=== PATIENT | female | born 1945 | race Caucasian/White ===

== ENCOUNTER 2017-09-13 15:00 | Outpatient (CLI) | payer MEDICARE, BC ==
--- NOTE | 2017-09-13 18:19 | MRI ---
MR OF THE RIGHT SHOULDER WITHOUT CONTRAST 09/13/17 INDICATION: Right shoulder pain. COMPARISON: Right shoulder radiograph dated 09/22/16. FINDINGS: Motion artifact slightly limits image detail. There is a full thickness tear involving the supraspina tus measuring 1.8 cm in greatest AP dimension and 1.2 cm in greatest mediolateral dimension. Portions of the posterior fibers and conjoined tendon are intact. There is articular surface extension into t he anterior and mid aspect of the infraspinatus at the footprint involving approximately 50% of the t endon thickness. The subscapularis is intact. The biceps tendon is completely obstructed and distally retracted. There is degenerative signal involving the supraglenoid labrum. There is mild AC joint osteoarthrosis. No muscular atrophy is evident. There is a type II acromion. IMPRESSION: 1. Complete supraspinatus tear with partial thickness, articular surface extension into the ante rior and mid infraspinatus. The partial thickness articular surface tear of the infraspinatus involve s 50% of the tendon thickness. 2. Complete disruption of the biceps tendon with distal retraction. 3. Type I degenerative SLAP tear of the superior glenoid labrum. 4. Mild AC joint osteoarthrosis. POS: [facility]
== END 2017-09-13 15:01 | disposition home or self-care (01) ==
LOC: SCSMRI 15:00
PROVIDERS: ATTEND Orthopaedic Surgery
DX: M25.511 Pain in right shoulder (principal); M19.011 Primary osteoarthritis, right shoulder; S43.431A Superior glenoid labrum lesion of right shoulder, initial encounter; S46.811A Strain of other muscles, fascia and tendons at shoulder and upper arm level, right arm, initial encounter

== ENCOUNTER 2017-10-25 13:39 | Outpatient (CLI) | payer MEDICARE, BC | END 2017-10-25 13:40 | disposition home or self-care (01) | LOC: LABBT 13:39 | PROVIDERS: ATTEND Orthopaedic Surgery | DX: Z01.810 Encounter for preprocedural cardiovascular examination (principal); M75.101 Unspecified rotator cuff tear or rupture of right shoulder, not specified as traumatic | CPT/HCPCS: 93005; 93010 ==

== ENCOUNTER → 2017-10-27 | Day surgery (SDC) | payer MEDICARE, BC ==
[2017-10-25 13:44] VITALS: BMI 23.0
[~2017-10-27] MED LIST: Bupivacaine/Epinephrine 0.25% 30 ML VIAL ONE; CEFAZOLIN/Water 2 GM/20 ML SYRINGE ONE; Fentanyl 100 MCG/2 ML VIAL IV PRN; Fentanyl 100 MCG/2 ML VIAL ONE; Midazolam HCl 2 mg/2 ml Vial ONE; Ondansetron HCl/PF 4 MG/2 ML Vial IVP PRN; Promethazine HCl 25 MG/ML VIAL IM PRN; Promethazine HCl 25 MG/ML VIAL SLOW IVP PRN; Ropivacaine HCl/PF 1,100 MG in Sodium Chloride 0.9% 440 ML NERVE BLCK SCH; Zolpidem Tartrate 5 MG TAB PO PRN
--- NOTE | 2017-10-27 08:13 | HP ---
CHIEF COMPLAINT: Right shoulder pain. HISTORY OF PRESENT ILLNESS: Ms. Leos is a 72-year-old female who presents complaining of right sh oulder pain for about 2 years. She only had partial relief with anti-inflammatories , injection . The patient's pain is from 6-8/10, where lifting is painful. She has failed conservative measures . 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 PAST SURGICAL HISTORY: Tubal ligation, L4-S1 laminectomy, meningioma resection in 1988, neuroma on f oot, cataract surgery, left eye. MEDICATIONS: Aspirin, citalopram, ibuprofen, Zonegran. ALLERGIES: LIPITOR. SOCIAL HISTORY: Nonsmoker. Does drink. The patient is retired [employer]. with grandchildren. PHYSICAL EXAMINATION: VITAL SIGNS: Afebrile, stable. GENERAL: Alert and oriented female in no acute distress. EXTREMITIES: The patient has a nadja deformity, pain with elevation, infraspinatus 4/5, supraspinat us 4/5, strength 5/5, tenderness in subacromial space, positive Ontiveros, neurovascularly intact, 2+ r adial pulse. IMAGING: MRI of the shoulder showed a proximal biceps rupture with supraspinatus leading edge infras pinatus tear with retraction articular margin without significant atrophy, type 2 acromion. IMPRESSION: 1. A rupture of long head of biceps. 2. Complete rotator cuff tear. 3. Impingement. ASSESSMENT AND PLAN: I discussed with the patient and the family that we would perform a rotator cuf f repair with possible decompression. I discussed that I would take the available rotator cuff and r epair at the margin if I had to medialize the insertion that I would. Discussed that I would only be able to repair as much of the tissue allows. I discussed the risks and benefits of repair to includ e pain, scar, bleeding, infection, damage to vital structures, nerve, arteries, tendons, loss of life or limb. The patient understood the risks and benefits and elected to proceed.
--- NOTE | 2017-10-27 10:18 | OP ---
DATE OF PROCEDURE: 10/27/2017 PREOPERATIVE DIAGNOSES: 1. Full thickness rotator cuff tear, supraspinatus leading edge infraspinatus. 2. Biceps rupture with biceps stump. POSTOPERATIVE DIAGNOSES: 1. Full thickness rotator cuff tear, supraspinatus leading edge infraspinatus. 2. Biceps rupture with biceps stump. PROCEDURE PERFORMED: 1. Arthroscopic right rotator cuff repair, double row transosseous equivalent. 2. Limited debridement, biceps stump subacromial space. STAFF: Blair Randolph M.D. OYSTER CULTIVATOR: None. ANESTHESIA: The patient received general endotracheal intubation with interscalene block. ESTIMATED BLOOD LOSS: 30 mL. TOURNIQUET TIME: None. IMPLANTS: Arthrex 5.5 corkscrew x2, 5-5 SwiveLock Arthrex x2. COMPLICATIONS: None. HISTORY OF PRESENT ILLNESS: Ms. Leos presents with 2 years of progressing right shoulder pain. T he patient had MRI evidence of full thickness tear. She failed conservative measures. I discussed w ith patient the risks and benefits of right arthroscopic rotator cuff repair to include pain, scar, b leeding, infection, damage to vital structures, decreased range of motion or strength, failure of pro cedure, continued pain despite surgical interventions. Failure of tendon to heal, continue biceps de formity, loss of life or limb. The patient understood the risks and benefits and elected to proceed. PROCEDURE IN DETAIL: Time out was performed designating the patient's right upper extremity as the o perative site based on site, consents and markings. After completion of timeout, the patient's right upper extremity was prepped and draped in sterile fashion. A posterior, anterior working portal karolyn yeison, visualize intraarticularly. There was a large pendulous biceps stump which was debrided back. There was no large articular defects noted on the glenoid or noted on the humeral head. I debrided b ack the bone down to bleeding bone. I was within the joint, looked at the subscapularis and in the i nferior pouch, otherwise intact. After completion of this, I moved subacromially, I removed some of the bursa subacromially and decompress the soft tissue from the acromion, but did not take down any l arge bone for spikes. I placed a lateral working portal and then through my previous portal placed 2 cannulas, placed 1 just off the anterolateral edge of the stab incision for placing my anchors. Aft er I had created my footprint for my repair, I placed 2 anchors just off the articular margin, passed a 4 suture 8 strands of 4-0 sutures, sewed 4 horizontal mattress sutures, then used those for transo sseous equivalent with a cork SwiveLocks laterally, passed them into place, screws them down and cut the sutures. Following had a good overall bony apposition, the rotator cuff had good overall repair, I was pleased with the outcome. We then washed, closed with 2-0 Nylon. The patient will follow up with me in 10-14 days for suture removal. Elbow, wrist, and hand motion u ntil that time. She is being sent home with pain medications.
== END ==
LOC: SDC 06:06
PROVIDERS: ATTEND Orthopaedic Surgery
PROC: 0LM14ZZ Reattachment of Right Shoulder Tendon, Percutaneous Endoscopic Approach (ICD-10-PCS; principal; 2017-10-27)
PROC: 0LU14JZ Supplement Right Shoulder Tendon with Synthetic Substitute, Percutaneous Endoscopic Approach (ICD-10-PCS; 2017-10-27)
PROC: 0RNJ4ZZ Release Right Shoulder Joint, Percutaneous Endoscopic Approach (ICD-10-PCS; 2017-10-27)
DX: M75.121 Complete rotator cuff tear or rupture of right shoulder, not specified as traumatic (principal); S46.111A Strain of muscle, fascia and tendon of long head of biceps, right arm, initial encounter; M75.41 Impingement syndrome of right shoulder; F41.9 Anxiety disorder, unspecified; F32.9 Major depressive disorder, single episode, unspecified; M19.90 Unspecified osteoarthritis, unspecified site; M35.00 Sjogren syndrome, unspecified; K57.90 Diverticulosis of intestine, part unspecified, without perforation or abscess without bleeding; N18.3 Chronic kidney disease, stage 3 (moderate); Z88.8 Allergy status to other drugs, medicaments and biological substances; Z79.82 Long term (current) use of aspirin; Z79.899 Other long term (current) drug therapy
CPT/HCPCS: 29826; 29827; 97139; C1713 ×2; G8984; G8985; G8986; J2250; J3010; J7050

== ENCOUNTER 2017-11-04 10:29 | Inpatient (IN) | payer MEDICARE, BC ==
[~2017-11-04 10:29] MED LIST changes: -Bupivacaine/Epinephrine 0.25% 30 ML VIAL ONE; -CEFAZOLIN/Water 2 GM/20 ML SYRINGE ONE; -Fentanyl 100 MCG/2 ML VIAL IV PRN; -Fentanyl 100 MCG/2 ML VIAL ONE; +ISOVUE-370 76%-LOCM 1 ML ONE; -Midazolam HCl 2 mg/2 ml Vial ONE; -Ondansetron HCl/PF 4 MG/2 ML Vial IVP PRN; -Promethazine HCl 25 MG/ML VIAL IM PRN; -Promethazine HCl 25 MG/ML VIAL SLOW IVP PRN; -Ropivacaine HCl/PF 1,100 MG in Sodium Chloride 0.9% 440 ML NERVE BLCK SCH; -Zolpidem Tartrate 5 MG TAB PO PRN
[2017-11-04 11:12] LABS: #Eosinphils 0.2 thou/uL (0.0-0.7); #Lymphocytes 1.1 thou/uL (1.20-3.40); #Monocytes 0.7 thou/uL (0.11-0.59); #Neutrophils 4.7 thou/uL (1.40-6.50); %Basophils 0.6 % (0.0-1.0); %Eosinophils 3.2 % (0.0-10.0); %Lymphocytes 16.3 % (21.0-51.0); %Monocytes 10.1 % (0.0-10.0); %Neutrophils 69.8 % (42.0-75.0); Hemoglobin 11.1 g/dL (12.0-16.0); Mean Corpuscular HGB CONC 32.8 g/dL (32.0-36.0); Mean Corpuscular Hemoglobin 33.2 pg (27.0-31.0); Mean Platelet Volume 7.5 fL (7.4-10.4); Platelet Count 248 thou/uL (130-400); RBC Distribution Width 12.8 % (11.5-14.5); Red Blood Cell (RBC) Count 3.34 mill/uL (4.20-5.40); White Blood Cell (WBC) Count 6.8 thou/uL (4.8-10.8)
[2017-11-04 11:32] LABS: ALT (SGPT) 17 U/L (8-55); AST (SGOT) 19 U/L (5-34); Albumin 3.3 g/dL (3.4-4.8); Alkaline Phosphatase 55 U/L (40-150); Anion Gap 11 mmol/L (10-20); BUN (Urea Nitrogen) 9 mg/dL (9.8-20.1); Bilirubin, Total 0.4 mg/dL (0.2-1.2); Calc. Creatinine Clearance 0 mL/min (70-130); Calcium 8.8 mg/dL (7.8-10.44); Carbon Dioxide 24 mmol/L (23-31); Chloride 110 mmol/L (98-107); Estimated GFR-MDRD 76; Globulin 2.5 g/dL (2.4-3.5); Glucose 97 mg/dL (83-110); Lipase 5 U/L (8-78); Potassium 3.7 mmol/L (3.5-5.1); Protein, Total 5.8 g/dL (6.0-8.3); Sodium 141 mmol/L (136-145)
[2017-11-04 12:03] LABS: Bilirubin Negative (Negative); Blood, Urine Negative (Negative); Clarity CLEAR (Clear); Glucose, Urine (Dipstick) Negative (Negative); Leukocyte Negative (Negative); Nitrite Negative (Negative); Protein, Urine (Dipstick) Negative (Neg-Trace); Specific Gravity, Urine 1.009 (1.002-1.036); Urobilinogen 0.2 mg/dL (0.2-1.0)
[2017-11-04] MEDS ORDERED: Ondansetron ODT 4 MG TAB ONE (13:25)
--- NOTE | 2017-11-04 14:15 | CT ---
CT ABDOMEN WITH CONTRAST CT PELVIS WITH CONTRAST: DATE: 11/04/17 TIME: 1256 hours HISTORY: 72-year-old female with generalized abdominal pain and recent diagnosis of sepsis. Now with generaliz ed abdominal pain, diarrhea, and weakness. COMPARISON: None. TECHNIQUE: IV injection of iodinated contrast media: Administered. Oral contrast media: Not administered. FINDINGS: There is diffuse mural thickening and edema, and increased enhancement of the mucosa, of the left col on, beginning at the mid transverse colon, involving the splenic flexure, entire descending colon, an d most or all of the sigmoid colon, and questionably the rectum. The ascending colon is probably mild ly involved, as is the right transverse colon. There is diffuse mild edema throughout the mesentery. Tiny amount of free fluid in the cul-de-sac. Urinary bladder is distended. There is a tiny bubble of gas in the nondependent lumen of the urinary bladder, which may be due to recent catheterization. Uri nary bladder pierce are thin and normal. No small bowel dilation. No abdominal aortic aneurysm. Scatte red calcified atherosclerotic plaque in the abdominal aorta, including origin of SMA and right renal artery (their degree of stenosis is difficult to assess because this was not a dedicated CTA). No gurwinder or pathology of the liver, bilateral kidneys, pancreas, adrenals, or spleen. There is atelectasis at the right anterolateral lung base. Small bilateral pleural effusions. No pneumoperitoneum. Appendix i s difficult to differentiate from adjacent collapsed small bowel loops in the right lower quadrant. IMPRESSION: 1. Diffuse colitis, most severe in the left hemicolon. Although ischemic colitis is always a possibi lity in patients of this age group, this is suspected to represent Clostridium Difficile (pseudomembr anous) colitis because of the history of recent antibiotic use for both diverticulitis and sepsis. 2. Small bilateral pleural effusions. JNR POS: [facility]
[2017-11-04 17:15] LABS: Troponin I Less than 0.010 ng/mL (< 0.028)
[2017-11-04] MEDS ORDERED: Zolpidem Tartrate 5 MG TAB PO PRN (17:46)
[2017-11-04] MEDS ORDERED: Acetaminophen 325 MG TAB PO PRN (17:46)
[2017-11-04] MEDS ORDERED: hydrALAZINE 20 MG/ML VIAL SLOW IVP PRN (17:46)
[2017-11-04] MEDS ORDERED: Diabetic Tussin 200 MG/10 ML UDCUP PO PRN (17:46)
[2017-11-04] MEDS ORDERED: Ondansetron HCl/PF 4 MG/2 ML Vial IVP PRN (17:46)
[2017-11-04] MEDS ORDERED: Artificial Tears 18 DROP/0.9 ML EA EYE PRN (17:46)
[2017-11-04] MEDS ORDERED: Milk Of Magnesia 30 ML UDCUP PO PRN (17:46)
[2017-11-04] MEDS ORDERED: Chloraseptic Spray 180 ml Bottle PO PRN (17:46)
[2017-11-04] MEDS ORDERED: Loratadine 10 MG TAB PO PRN (17:46)
[2017-11-04] MEDS ORDERED: Eucerin (Mineral Oil/Petrolatum,White) 30 gm Jar TOP PRN (17:46)
[2017-11-04] MEDS ORDERED: Ondansetron ODT 4 MG TAB PO PRN (17:46)
[2017-11-04] MEDS ORDERED: Sodium Chloride 0.65% Nasal 44 ML BOT EA NARE PRN (17:46)
[2017-11-04] MEDS ORDERED: Senokot 8.6 MG TAB PO PRN (17:46)
[2017-11-04] MEDS ORDERED: Mag-Al 1200 mg/1200 mg/30 ML UDCUP PO PRN (17:46)
--- NOTE | 2017-11-04 17:48 | HP ---
PRIMARY CARE PHYSICIAN: Cecilia Quinn MD REASON FOR ADMISSION: Acute colitis. HISTORY OF PRESENT ILLNESS: A 72-year-old female who reports that she has abdominal pain for a perio d of time. In our hospital, Patient had surgery by Dr. Agustín Pinto for right rotator cuff repair. Patient reports that even before that patient was having abdominal pain. She saw primary care phys amarilis at that time and she empirically started antibiotic therapy. Patient does not know the name of medication. The patient was told that she might have diverticulitis, but investigation was not done . The patient stopped taking those antibiotic therapy couple of days before her rotator cuff repair that was done on 10/27/2017. The patient was discharged from the hospital after that she was admitte d at [facility] on 10/31/2017. At that time, patient had CT of the abdomen and pelvis and the patient was told that she was constipated from [place]. She was having cellulitis nearby surgi karena site in the right arm and that is why she was given IV antibiotic therapy in hospital and upon di scharge and she was given Keflex. The patient reports that she was discharged yesterday afternoon ti ma. Patient's abdominal pain was getting worse and she started having diarrhea and that is why she m pauline appointment with primary care physician who advised her to go to the emergency room for evaluatio n. In the emergency room, CT of the abdomen and pelvis done which showed diffuse colitis. Patient d enies any fever or chills. She denies any nausea, vomiting, melena or hematochezia. She denies any urinary tract infection symptoms. She denies any headache, focal motor or sensory symptoms. REVIEW OF SYSTEMS: The following complete review of systems was negative, unless otherwise mentioned in the HPI or below: Constitutional: Weight loss or gain, ability to conduct usual activities. Sk in: Rash, itching. Eyes: Double vision, pain. ENT/Mouth: Nose bleeding, neck stiffness, pain, te nderness. Cardiovascular: Palpitations, dyspnea on exertion, orthopnea. Respiratory: Shortness of breath, wheezing, cough, hemoptysis, fever or night sweats. Gastrointestinal: Poor appetite, abdom inal pain, heartburn, nausea, vomiting, constipation, or diarrhea. Genitourinary: Urgency, frequenc y, dysuria, nocturia. Musculoskeletal: Pain, swelling. Neurologic/Psychiatric: Anxiety, depressio n. Allergy/Immunologic: Skin rash, bleeding tendency. Please see my HPI for pertinent positive and negative. All other review of system reviewed and negat edvin except as mentioned in the HPI. PAST MEDICAL HISTORY: Meningioma removed on signs of spinal cord. PAST PSYCHIATRIC HISTORY: Anxiety and depression. PAST SURGICAL HISTORY: Lumbar surgery, right rotator cuff surgery, tubal ligation, appendicectomy, g astric bypass. FAMILY HISTORY: No strong family history of premature coronary artery disease, stroke or cancer. SOCIAL HISTORY: The patient is , drinks alcohol socially. She denies any smoking. She denie s any other illicit drug abuse. ALLERGIES: LIPITOR. CURRENT HOME MEDICATIONS: Keflex 500 mg 3 times daily, aspirin 81 mg p.o. daily, calcium with vitami n D 1 tablet p.o. daily, Lexapro 10 mg p.o. daily, [place] 10 one tablet q.6 hourly p.r.n., multivitami n 1 tablet p.o. daily, vitamin D3 of 1000 units p.o. daily, zonisamide 300 mg twice daily. EMERGENCY ROOM COURSE: Patient is given Zofran, morphine sulfate 2 mg and IV fluid. PHYSICAL EXAMINATION: VITAL SIGNS: On arrival, blood pressure 128/63, pulse 73, respiratory rate 18, temperature 97.6, sat uration 94% on room air, weight 64.4 kilograms. GENERAL: Patient is currently alert, awake, no obvious acute distress. HEAD: Normocephalic, atraumatic. EYES: Pupils round, reactive to light. Extraocular muscle intact. ENT: Oropharynx within normal limits. Dry appearing mucous membranes. No oral lesion, no pharyngea l erythema, no exudate. NECK: Supple, no JVD, no thyromegaly, no carotid bruit. LUNGS: Clear to auscultation without any rhonchi or rales. CARDIAC: S1, S2 regular. No murmur, no gallop, no rub. ABDOMEN: Diffuse tenderness noted on lower abdomen, no peritoneal sign, no guarding, no rigidity, no rebound. BACK: Unremarkable, no CVA tenderness. EXTREMITIES: Upper extremity: Passive movements of all joints are normal. Lower extremities: No e didi. Good peripheral pulsation. SKIN: No skin rash. HEMATOLOGICAL: No lymphadenopathy. PSYCHIATRIC: Normal affect. SIGNIFICANT LABORATORY: 1. CBC: WBC 6.8, hemoglobin 11.1, MCV 101.0, platelet 248. BMP shows sodium 141, potassium 3.7, ch loride 110, carbon dioxide 24, anion gap 11, BUN 9, creatinine 0.75, glucose 97, calcium 8.8. 2. LFT: AST 19, ALT 17, alkaline phosphatase 55, albumin 3.3, lipase 5. Urinalysis normal. CT of the abdomen and pelvis showing diffuse colitis of left hemicolon, ischemic colitis versus Clostridium difficile colitis is suspected, small bilateral pleural effusion. ASSESSMENT AND PLAN/IMPRESSION: 1. Diffuse colitis, left hemicolon. Differential diagnosis is C. difficile colitis versus ischemic colitis. Patient was recently exposed to several rounds of antibiotic therapy that may increase her risk of C. difficile infection. We will check stool for infection workup. We will consult gastroent erologist for further evaluation. We will treat her with IV Flagyl and oral vancomycin. We will mon itor clinical response. We will check CRP. 2. Microcytic anemia. The patient will be given folic acid and vitamin B12 therapy. 3. Hypoalbuminemia related with mild protein calorie malnutrition. 4. Anxiety and depression. We will continue Lexapro 10 mg p.o. daily. 5. History of meningioma. Patient is taking zonisamide 300 mg p.o. b.i.d., which will continue whil e in hospital. 6. Deep venous thrombosis prophylaxis, Lovenox 40 mg subcu daily. 7. Gastrointestinal prophylaxis, Pepcid 20 mg p.o. b.i.d. 8. Code status: The patient is FULL CODE. Patient's is surrogate decision maker. Disposition plan based on clinical course. We are expecting patient's stay in hospital more than 2 m idnights. Plan of care discussed with the patient in detail.
[2017-11-04] MEDS ORDERED: Vancomycin HCl 25 MG/ML Oral PO SCH ×2 (18:00→21:00)
[2017-11-04 18:06] VITALS: BMI 22.1
[2017-11-04] MEDS: Sodium Chloride 0.9% 1,000 ML IV SCH (21:37)
[2017-11-04] MEDS: metroNIDAZOLE 500 MG in Premix Bag 1 BAG IVPB SCH (21:38)
[2017-11-04] MEDS: Zonisamide 100 MG CAP PO SCH (21:39)
[2017-11-04] MEDS: Famotidine 20 MG TAB PO SCH (21:39)
[2017-11-05] MEDS: metroNIDAZOLE 500 MG in Premix Bag 1 BAG IVPB SCH ×2 (04:37→11:51)
[2017-11-05] MEDS: Sodium Chloride 0.9% 1,000 ML IV SCH ×4 (04:37→22:13)
[2017-11-05 04:49] LABS: #Eosinphils 0.2 thou/uL (0.0-0.7); #Lymphocytes 1.6 thou/uL (1.20-3.40); #Monocytes 0.6 thou/uL (0.11-0.59); #Neutrophils 2.1 thou/uL (1.40-6.50); %Eosinophils 5.2 % (0.0-10.0); %Lymphocytes 35.2 % (21.0-51.0); %Monocytes 12.7 % (0.0-10.0); %Neutrophils 46.1 % (42.0-75.0); Hemoglobin 9.4 g/dL (12.0-16.0); Mean Corpuscular HGB CONC 33.7 g/dL (32.0-36.0); Mean Corpuscular Hemoglobin 33.7 pg (27.0-31.0); Mean Platelet Volume 7.1 fL (7.4-10.4); Platelet Count 223 thou/uL (130-400); Red Blood Cell (RBC) Count 2.79 mill/uL (4.20-5.40); White Blood Cell (WBC) Count 4.6 thou/uL (4.8-10.8)
[2017-11-05 05:03] LABS: Anion Gap 9 mmol/L (10-20); BUN (Urea Nitrogen) 6 mg/dL (9.8-20.1); Calc. Creatinine Clearance 71 mL/min (70-130); Calcium 7.9 mg/dL (7.8-10.44); Carbon Dioxide 24 mmol/L (23-31); Chloride 113 mmol/L (98-107); Estimated GFR-MDRD 81; Glucose 83 mg/dL (83-110); Potassium 3.5 mmol/L (3.5-5.1); Sodium 142 mmol/L (136-145)
[2017-11-05] MEDS: Zonisamide 100 MG CAP PO SCH ×2 (08:40→20:01)
[2017-11-05] MEDS: Saccharomyces boulardii 250 MG CAP PO SCH (08:40)
[2017-11-05] MEDS: Famotidine 20 MG TAB PO SCH ×2 (08:40→20:01)
[2017-11-05] MEDS: Enoxaparin Sodium 40 MG/0.4 ML SYRINGE SC SCH (08:40)
[2017-11-05] MEDS: Escitalopram Oxalate 10 mg Tablet PO SCH (08:40)
[2017-11-05] MEDS ORDERED: Prevnar 13-Val Conj/PF 0.5 ML SYRINGE IM ONE (09:00)
[2017-11-05] MEDS: HYDROcodone/Acetaminophen 5/325 mg Tablet PO PRN ×3 (09:58→22:10)
--- NOTE | 2017-11-05 14:22 | PDOC.PN ---
- Subjective Encounter Start Date: 11/05/17 Encounter Start Time: 14:20 Subjective: feels much better.1 small BM this morning.no diarrhea -: eating a little -: family at bedside.care updated - Objective Resuscitation Status: Resuscitation Status FULL:Full Resuscitation MAR Reviewed: Yes Vital Signs & Weight: Vital Signs (12 hours) Temp Pulse Resp BP BP Pulse Ox 11/05/17 12:11 97.6 F 75 16 120/72 92 L 11/05/17 08:28 97.9 F 71 16 125/61 95 11/05/17 08:00 97.9 F 71 16 96 11/05/17 04:00 97.6 F 68 16 104/63 92 L I&O: 11/04/17 11/05/17 11/06/17 06:59 06:59 06:59 Intake Total 1824 600 Balance 1824 600 Result Diagrams: 11/05/17 03:58 11/05/17 03:58 Additional Labs: Microbiology 11/04/17 16:46 Stool - Pending C. difficile GDH Antigen & Toxins - Final 11/04/17 16:46 Stool - Pending Clostridium difficile Toxin A&B PCR - Final 11/04/17 11:53 Urine clean catch Urine Culture - Preliminary NO GROWTH AT 24 HOURS Laboratory Tests 11/04/17 16:40 Troponin I Less than 0.010 labs reviewed Phys Exam - Physical Examination Constitutional: NAD HEENT: PERRLA, moist MMs, sclera anicteric, oral pharynx no lesions Neck: no nodes, no JVD, supple, full ROM Respiratory: no wheezing, no rales, no rhonchi, clear to auscultation bilateral Cardiovascular: RRR, no significant murmur, no rub Gastrointestinal: soft, non-tender, no distention, positive bowel sounds Musculoskeletal: no edema, pulses present Neurological: non-focal, normal sensation, moves all 4 limbs Psychiatric: normal affect, A&O x 3 Skin: no rash Dx/Plan (1) C. difficile colitis Status: Acute (2) HTN (hypertension) Code(s): I10 - ESSENTIAL (PRIMARY) HYPERTENSION Status: Chronic (3) HLD (hyperlipidemia) Code(s): E78.5 - HYPERLIPIDEMIA, UNSPECIFIED Status: Chronic - Plan continue antibiotics, PT/OT, out of bed/ambulate, DVT proph w/SCDs cont IV Flagyl.Po vancomycin -: reduave IVF. encourage PO intake -: home meds as below. -: GI recs requested. -: am labs * . Review of Systems - Review of Systems Constitutional: weakness. negative: fever, chills, sweats, malaise, other Respiratory: negative: Cough, Dry, Shortness of Breath, Hemoptysis, SOB with Excertion, Pleuritic Pain, Sputum, Wheezing Cardiovascular: negative: chest pain, palpitations, orthopnea, paroxysmal nocturnal dyspnea, edema, light headedness, other Gastrointestinal: negative: Nausea, Vomiting, Abdominal Pain, Diarrhea, Constipation, Melena, Hematochezia, Other Genitourinary: negative: Dysuria, Frequency, Incontinence, Hematuria, Retention , Other Musculoskeletal: negative: Neck Pain, Shoulder Pain, Arm Pain, Back Pain, Hand Pain, Leg Pain, Foot Pain, Other Skin: negative: Rash, Lesions, Klaus, Bruising, Other Neurological: negative: Weakness, Numbness, Incoordination, Change in Speech, Confusion, Seizures, Other - Medications/Allergies Allergies/Adverse Reactions: Allergies Allergy/AdvReac Type Severity Reaction Status Date / Time atorvastatin [From Lipitor] Allergy language Verified 10/25/17 13:47 disability Medications: Current Medications Acetaminophen (Tylenol) 650 mg PO Q4H PRN PRN Reason: Headache/Fever or Pain Hydrocodone Bitart/Acetaminophen ([place] 5/325) 1 tab PO Q4H PRN PRN Reason: Moderate Pain (4-6) Last Admin: 11/05/17 09:58 Dose: 1 tab Al Hydroxide/Mg Hydroxide (Maalox) 30 ml PO Q6H PRN PRN Reason: Heartburn or Indigestion Amlodipine Besylate (Norvasc) 10 mg PO DAILY [facility] Artificial Tears (Tears Naturale) 0 drop EA EYE PRN PRN PRN Reason: Dry Eyes Citalopram Hydrobromide (Celexa) 40 mg PO DAILY [facility] Enoxaparin Sodium (Lovenox) 40 mg SC 0900 [facility] Last Admin: 11/05/17 08:40 Dose: 40 mg Escitalopram Oxalate (Lexapro) 10 mg PO DAILY [facility] Last Admin: 11/05/17 08:40 Dose: 10 mg Famotidine (Pepcid) 20 mg PO BID [facility] Last Admin: 11/05/17 08:40 Dose: 20 mg Guaifenesin (Robitussin Sf) 200 mg PO Q4H PRN PRN Reason: Cough Hydralazine HCl (Apresoline) 10 mg SLOW IVP Q4H PRN PRN Reason: Systolic BP > 180 Metronidazole 500 mg/ Device 100 mls @ 100 mls/hr IVPB 0400,1200,2000 [facility] Last Admin: 11/05/17 11:51 Dose: 100 mls Sodium Chloride (Normal Saline 0.9%) 1,000 mls @ 75 mls/hr IV .[id number] [facility] Loratadine (Claritin) 10 mg PO DAILYPRN PRN PRN Reason: Sinus Symptoms Magnesium Hydroxide (Milk Of Magnesium) 30 ml PO DAILYPRN PRN PRN Reason: Constipation Mineral Oil/White Petrolatum (Eucerin Cream) 0 gm TOP BIDPRN PRN PRN Reason: Dry Skin Ondansetron HCl (Zofran Odt) 4 mg PO Q6H PRN PRN Reason: Nausea/Vomiting Ondansetron HCl (Zofran) 4 mg IVP Q6H PRN PRN Reason: Nausea/Vomiting Phenol (Chloraseptic [place] 180 Ml Bot) 0 ml PO PRN PRN PRN Reason: Sore Throat Pravastatin Sodium (Pravachol) 20 mg PO DAILY [facility] Saccharomyces Boulardii (Florastor) 250 mg PO DAILY [facility] Last Admin: 11/05/17 08:40 Dose: 250 mg Senna (Senokot) 2 tab PO HSPRN PRN PRN Reason: Constipation Sodium Chloride ([place] Nasal [place] 0.65%) 0 ml EA NARE QIDPRN PRN PRN Reason: Nasal Congestion Zolpidem Tartrate (Ambien) 5 mg PO HSPRN PRN PRN Reason: Insomnia Zonisamide (Zonegran) 300 mg PO BID [facility] Last Admin: 11/05/17 08:40 Dose: 300 mg
[2017-11-05] MEDS: Vancomycin HCl 25 MG/ML Oral PO SCH ×2 (17:03→22:10)
--- NOTE | 2017-11-05 18:35 | CON ---
DATE OF CONSULTATION: 11/05/2017 REASON FOR CONSULTATION: Proctosigmoiditis. CONSULTING PHYSICIAN: Dr. Rico Venegas. HISTORY OF PRESENT ILLNESS: The patient is a 72-year-old female with a past medical history of menin gioma, anxiety and depression, presenting with complaints of increased abdominal pain and diarrhea. Per chart review, she had recently been admitted to the hospital for a right rotator cuff repair perf ormed by Dr. Zuluaga in the beginning of October. During that hospitalization, she was placed on anti biotic therapy in the postoperative period as well as placed on pain control medications which then c aused significant constipation. Shortly after her discharge, she had increasing complaints of abdomi nal pain and constipation at which point, she was seen at [facility] on 10/31/2017. As part of her workup there, there was report that she had a CT scan of the abdomen and pelvis which sh owed significant constipation and she was ultimately given laxative and treatment for that. With the administration of what appeared to be magnesium citrate, she had increasing diarrhea-like bowel move ments that did not andree once the magnesium citrate was discontinued. Over the last 3 days prior to admission, she has been having increased abdominal pain located primarily in the left lower quadrant characterizes a sharp stabbing type sensation, constant and would reach a severity of 8/10. There wa s no clear alleviating or exacerbating factors, but was associated with increased frequency of bowel movements having anywhere between 8 and 10 liquid bowel movements per day. With the sudden worsening of her abdominal pain despite hospitalization and the alleviation of the constipation, it prompted h er to seek additional healthcare assistance at [facility]. Infectious stool studies done sh ortly after admission showed the presence of Clostridium difficile. Of note, the patient describes that she has been having intermittent left lower quadrant abdominal pa in for the last 3-4 months for which her primary care doctor had diagnosed her diverticulitis. She w as initially given antibiotics as part of that particular diagnosis and had resolution of her abdomin al pain at that time. REVIEW OF SYSTEMS: A 10 category review of systems was obtained with all responses negative except f or the pertinent positives as listed in the HPI. PAST MEDICAL HISTORY: As per HPI. PAST SURGICAL HISTORY: Lumbar surgery, bilateral tubal ligation, right rotator cuff surgery, appende ctomy, and gastric bypass. SOCIAL HISTORY: Denies any tobacco or illicit drug use. She does drink socially, drinking approxima tely 1-2 glasses of wine nightly. FAMILY HISTORY: Denies any GI malignancy. OUTPATIENT MEDICATIONS: Reviewed. ALLERGIES: LIPITOR. PHYSICAL EXAMINATION: VITAL SIGNS: Temperature 97.6, pulse 75, blood pressure 120/72, respiratory rate 16, satting 92% on room air. GENERAL: The patient is lying in bed in no acute distress, alert and oriented x4. NECK: Supple. No JVD noted. CARDIOVASCULAR: Regular rate and rhythm with no discernible murmurs, gallops or rubs. LUNGS: Clear to auscultation bilaterally with no discernible wheezes or rales. ABDOMEN: Normoactive bowel sounds, soft, nontender, nondistended. EXTREMITIES: No cyanosis, clubbing or edema. IMAGING DATA: CT of the abdomen and pelvis obtained on 11/04/2017 showed the presence of diffuse mur al thickening and edema of the left colon and distal right colon. There was also diffuse edema in th e mesentery as well as within the left hemicolon itself concerning for possible colitis. LABORATORY DATA: CBC with a white blood cell count of 4.6, hemoglobin 9.4, hematocrit 27.9, platelet s 223. Chemistry with sodium of 142, potassium 3.5, chloride 113, CO2 of 24, BUN 6, creatinine 0.71, glucose 83, AST 19, ALT 17, alkaline phosphatase 55, total bilirubin 0.4, albumin 3.3, lipase 5. In fectious Disease's stool studies were positive for Clostridium difficile antigen and toxin. ASSESSMENT AND PLAN: The patient is a 72-year-old female with past medical history of meningioma, an xiety and depression, presenting with increased abdominal pain and infectious stool studies consisten t with Clostridium difficile colitis. Clostridium difficile colitis: The patient is presenting with a 3-4 month history of increased left lower quadrant abdominal pain which was initially thought to be acute diverticulitis. She was subseq uently treated with antibiotics with alleviation of this abdominal pain; however, more recently she h as been in and out of the hospital for right rotator cuff repair as well as constipation that have pr ompted the administration of antibiotic therapy which could further contribute to her current clinica l status. Infectious Disease studies obtained on this admission were positive for Clostridium diffic ile, which could contribute to all these symptoms she is having including abdominal pain, diarrhea, a nd the diffuse mural wall thickening seen on imaging. Ischemic colitis is within the differential on this patient, but would improve with treatment of her Clostridium difficile colitis and with active infection colonoscopy is contraindicated due to an increased risk of perforation. RECOMMENDATIONS: 1. We will transfer patient to oral vancomycin 125 mg every 6 hours as part of treatment for Clostri dium difficile infection. I would recommend this change from metronidazole primarily due to her adva nced age and higher resistance rates of Clostridium difficile to metronidazole and increased risk of recurrence in this particular patient population. 2. Continue to monitor clinically with patient being stable for discharge if she is having solidific ation of her stools. We will sign off at this time. Please call with any additional questions.
[2017-11-06] MEDS: Sodium Chloride 0.9% 1,000 ML IV SCH (02:47)
[2017-11-06] MEDS: Vancomycin HCl 25 MG/ML Oral PO SCH ×2 (05:44→11:46)
[2017-11-06 08:41] VITALS: TEMP 98
[2017-11-06] MEDS: Famotidine 20 MG TAB PO SCH (08:47)
[2017-11-06] MEDS: Escitalopram Oxalate 10 mg Tablet PO SCH (08:47)
[2017-11-06] MEDS: Saccharomyces boulardii 250 MG CAP PO SCH (08:47)
[2017-11-06] MEDS: HYDROcodone/Acetaminophen 5/325 mg Tablet PO PRN (08:50)
[2017-11-06] MEDS: Enoxaparin Sodium 40 MG/0.4 ML SYRINGE SC SCH (08:51)
[2017-11-06] MEDS: Zonisamide 100 MG CAP PO SCH (08:53)
[2017-11-06] MEDS ORDERED: Amlodipine 10 MG TAB PO SCH (09:00)
[2017-11-06] MEDS ORDERED: Pravastatin Sodium 20 MG TAB PO SCH (09:00)
[2017-11-06] MEDS ORDERED: Citalopram 20 MG TAB PO SCH (09:00)
[2017-11-06 11:29] VITALS: BP 104/54
--- NOTE | 2017-11-07 01:28 | DIS ---
DATE OF ADMISSION: 11/04/2017 DATE OF DISCHARGE: 11/06/2017 CONDITION AT THE TIME OF DISCHARGE: Stable and improved. DISCHARGE DIAGNOSES: 1. Clostridium difficile colitis. 2. History of spinal cord meningioma. 3. Microcytic anemia. 4. Hyponatremia. 5. Mild protein calorie malnutrition. 6. Anxiety and depression. DISCHARGE MEDICATIONS: Vancomycin 125 mg p.o. q.i.d. for a total of 14 days, Florastor 250 mg daily for 14 days. Resume home medications as follows: Norvasc 10 mg daily, benazepril 5 mg daily, Celexa 40 mg daily, pravastatin 20 mg daily. PRIMARY CARE PHYSICIAN: Cecilia Quinn MD PROCEDURES DONE IN THE HOSPITAL: CT scan of the abdomen and pelvis, which shows diffuse colitis, mos t severe in the left hemicolon and small bilateral pleural effusion. CONSULTATION: Gastroenterology, Yuniel Gracia MD HISTORY OF PRESENT ILLNESS: Ms. Leos is a very pleasant 72-year-old female with past medical hist ory as outlined above, presented to the emergency room with complaints of abdominal pain for a period of time. She has been in and out of the hospital with a rotator cuff surgery earlier in October and becerril s been gotten antibiotics on discharge. Prior to that, she has received antibiotics for cellulitis. In the emergency room, a CT scan was done which was consistent with diffuse colitis. She was admitt ed for further evaluation and care. She was hemodynamically stable upon presentation. Please see ad mission history and physical for further detail. Stool studies were sent and she was started on empi roland antibiotics for possible C. diff. HOSPITAL COURSE: The patient's C. difficile came back and she was consulted by GI. She was initiall y started on IV Flagyl and oral vancomycin. Dr. Gracia saw the patient and recommended that she be co ntinued only on oral vancomycin, which has a higher cure rate. The patient had significant improveme nt quite quickly and by the time of discharge, she was back to her baseline. She was not having any stools in the hospital whatsoever. She was given prescription for vancomycin and is instructed to fo llow with her primary care physician in 7-10 days. She was seen and examined prior to discharge. PHYSICAL EXAMINATION: VITAL SIGNS: This morning vital signs: Temperature 98, pulse 67, respirations 18, saturating 98% on room air, blood pressure 104/54. GENERAL: No acute distress, awake, alert, oriented x3. CHEST: Clear to auscultation bilaterally. Rate and rhythm regular. ABDOMEN: Soft, nontender, nondistended. LABORATORY EXAMINATION: Hemoglobin 9.4, WBC 4.6. Serum chemistries unremarkable. Urinalysis unrema rkable. Discharge plan was discussed with the patient and her who verbalized understanding.
== END 2017-11-06 13:21 | disposition home or self-care (01) | DRG 372 ==
LOC: ERS 10:29 → T4-A 16:26
PROVIDERS: ADMIT Internal Medicine; ATTEND Internal Medicine
DX: A04.72 Enterocolitis due to Clostridium difficile, not specified as recurrent (principal); E44.1 Mild protein-calorie malnutrition; E87.1 Hypo-osmolality and hyponatremia; Z68.22 Body mass index [BMI] 22.0-22.9, adult; I10 Essential (primary) hypertension; E78.5 Hyperlipidemia, unspecified; F41.9 Anxiety disorder, unspecified; F32.9 Major depressive disorder, single episode, unspecified; D50.9 Iron deficiency anemia, unspecified; Z86.018 Personal history of other benign neoplasm
CPT/HCPCS: 36415; 74177; 80048; 80053; 81003; 83690; 85025; 87086; 87324; 87449; 87493; 96361; 96374; J1650; J2270; Q0162

== ENCOUNTER 2018-01-06 13:56 | Inpatient (IN) | payer MEDICARE, BC ==
[2018-01-06 14:43] LABS: #Eosinphils 0.2 thou/uL (0.0-0.7); #Lymphocytes 1.7 thou/uL (1.20-3.40); #Monocytes 0.4 thou/uL (0.11-0.59); #Neutrophils 2.8 thou/uL (1.40-6.50); %Basophils 0.9 % (0.0-1.0); %Eosinophils 3.5 % (0.0-10.0); %Lymphocytes 33.7 % (21.0-51.0); %Monocytes 8.2 % (0.0-10.0); %Neutrophils 53.7 % (42.0-75.0); Hemoglobin 10.8 g/dL (12.0-16.0); Mean Corpuscular Hemoglobin 34.4 pg (27.0-31.0); Mean Corpuscular Volume 98.2 fL (78.0-98.0); Mean Platelet Volume 7.3 fL (7.4-10.4); Platelet Count 211 thou/uL (130-400); RBC Distribution Width 13.6 % (11.5-14.5); Red Blood Cell (RBC) Count 3.15 mill/uL (4.20-5.40); White Blood Cell (WBC) Count 5.1 thou/uL (4.8-10.8)
[2018-01-06 15:08] LABS: CKMB 1.9 ng/mL (0-6.6)
[2018-01-06 15:09] LABS: ALT (SGPT) 14 U/L (8-55); AST (SGOT) 23 U/L (5-34); Albumin 4.3 g/dL (3.4-4.8); Alkaline Phosphatase 46 U/L (40-150); Anion Gap 11 mmol/L (10-20); BUN (Urea Nitrogen) 23 mg/dL (9.8-20.1); Bilirubin, Total 0.3 mg/dL (0.2-1.2); CK (CPK) 98 U/L (29-168); Calc. Creatinine Clearance 0 mL/min (70-130); Calcium 9.3 mg/dL (7.8-10.44); Carbon Dioxide 20 mmol/L (23-31); Chloride 111 mmol/L (98-107); Estimated GFR-MDRD 39; Globulin 2.5 g/dL (2.4-3.5); Glucose 99 mg/dL (83-110); Potassium 4.8 mmol/L (3.5-5.1); Protein, Total 6.8 g/dL (6.0-8.3); Sodium 137 mmol/L (136-145)
[2018-01-06 16:44] LABS: Bilirubin Negative (Negative); Blood, Urine Small (Negative); Clarity TURBID (Clear); Glucose, Urine (Dipstick) Negative (Negative); Leukocyte Large (Negative); Nitrite Positive (Negative); Protein, Urine (Dipstick) Negative (Neg-Trace); Specific Gravity, Urine 1.005 (1.002-1.036); Urobilinogen 0.2 mg/dL (0.2-1.0)
[2018-01-06 16:53] LABS: Amphetamine Not Detected (NotDetected); Bacteria/HPF Rare-Few HPF (None Seen); Barbiturates Screen Not Detected (NotDetected); Benzodiazepine Screen Not Detected (NotDetected); Cocaine Metabolite Screen Not Detected (NotDetected); Hyaline Casts/LPF 0-3 HYALINE CAST LPF (0-3 Hyaline); Medtox Control Line Valid? VALID (VALID); Medtox Reader # READER 4; Methadone Not Detected (NotDetected); Methamphetamine Not Detected (NotDetected); Opiate Screen Not Detected (NotDetected); Oxycodone Screen Not Detected (NotDetected); Pathc Cast-AUWi Flag 0.14 (0-2.49); Phencyclidine (PCP) Not Detected (NotDetected); RBC/HPF 0-3 HPF (0-3); Squamous Epithelial None Seen HPF (0-3); THC/Cannabinoid Screen Not Detected (NotDetected); Tricyclic Screen Not Detected (NotDetected)
[2018-01-06] MEDS ORDERED: Meropenem 2 GM in Sodium Chloride 0.9% 100 ML IVPB ONE (18:00)
[2018-01-06] MEDS ORDERED: Acetaminophen 325 MG TAB PO PRN (20:01)
[2018-01-06] MEDS ORDERED: Ondansetron HCl/PF 4 MG/2 ML Vial IVP PRN (20:01)
[2018-01-06] MEDS: Sodium Chloride 0.9% 1,000 ML IV SCH (21:48)
[2018-01-07 01:16] VITALS: BMI 22.9
--- NOTE | 2018-01-07 03:10 | HP ---
PRIMARY CARE PHYSICIAN: Cecilia Quinn M.D. CODE STATUS: FULL CODE. TIME OF EVALUATION: 07:30 p.m. CHIEF COMPLAINT: Confusion. HISTORY OF PRESENT ILLNESS: Information has been gathered from records, patient, and medical staff. The patient seems to be confused during my interview. This is a 75-year-old female patient. The patient has past medical history of previous nerve damage, renal problems, osteoporosis. The patient came to the hospital after having an episode of confusion . As noted, the patient has had infection of C. diff that has been going on for about 2-3 months, di arrhea has continued, not completely improve. As per records, her C. diff was tested and was negativ e. The patient has also taking multiple antibiotics for UTI that has failed to it and the patient wa s sent here for IV antibiotics, and for evaluation for continued diarrhea. Also, due to the acute en cephalopathy that seems to be severe. No clear triggers, no alleviating factors, also associated wit h nausea. REVIEW OF SYSTEMS: Unable to obtain. The patient is confused and noncooperative to interview. PAST MEDICAL HISTORY: Mentioned in the HPI. SOCIAL HISTORY: The patient lives with as per records. PAST SURGICAL HISTORY: Lumbar thoracic surgery, meningioma removal, right rotator cuff repair, catar act surgery, tubal surgery. PSYCHIATRIC HISTORY: Depression. SOCIAL HISTORY: No alcohol, no drugs. No smoking history. FAMILY HISTORY: Unable to obtain. The patient is noncooperative. ALLERGIES: STATINS. REPORTED MEDICATIONS: Cephalexin, aspirin, Caltrate, citalopram, hydrocodone/acetaminophen, multivit underwood, vitamin D3, zonisamide. PHYSICAL EXAMINATION: VITAL SIGNS: On presentation, blood pressure 119/65 with heart rate 70, respiratory rate was 16, tem perature 97.2, pain 6/10, oxygen saturation 96% on room air. GENERAL: The patient is alert, disoriented, not in any acute distress. HEENT: Eyes: Normal conjunctivae. Moist oral mucosa. Anicteric. NECK: No JVD. RESPIRATORY: Bilateral air entry. No rales, no wheezing. Symmetric expansion. CARDIOVASCULAR: Normal rate, regular rhythm. No murmurs, no gallop. No edema. ABDOMEN: Soft, normal bowel sounds. MUSCULOSKELETAL: Baseline range of motion and strength. No tenderness. SKIN: Warm and intact. No pallor, no rash, no redness. Peripheral pulses are present. Capillary r efill seems to be intact. NEUROLOGIC: Baseline sensory. The patient is confused. No evidence of any new focal weakness. The patient seems to be slow when talking. PSYCHIATRIC: The patient is in good mood, disoriented. LABORATORY DATA: Labs were reviewed. White count 5.1, hemoglobin 10.8, MCV 98, platelet count 211. Sodium 137, potassium 4.8, chloride 111, carbon dioxide 20, anion gap 11, BUN 23, creatinine 1.32, t he previous creatinine in 11/2017 was normal. GFR 39. Lactic acid was normal. Troponin was negativ e. LFTs were negative. Urine was done, it was positive with white counts in urine more than 50, too numerous to count. ASSESSMENT AND PLAN: The patient will be placed in the hospital with the following medical problems: 1. Acute encephalopathy, unclear etiology, the patient has underlying urinary tract infection, this might be the main reason. Also, has some chronic diarrhea. We will treat the underlying condition, we will give supportive care. 2. Acute kidney injury. The patient has increasing creatinine more than 0.3 from baseline in 8, we will give hydration, we will monitor kidney function, we will treat accordingly. 3. Urinary tract infection. The patient has elevated white count in the UA, we will do cultures, we have placed the patient on antibiotics as per last culture and sensitivity. Follow cultures, adjust treatment as needed. 4. Chronic diarrhea, unclear etiology. We will send cultures. C. difficile was negative yesterday as per reports. If no improvement, might need help from GI. 5. Chronic microcytic anemia. We will monitor, no need for any acute intervention at this point. 6. Deep venous thrombosis prophylaxis.
[2018-01-07 04:24] LABS: #Eosinphils 0.2 thou/uL (0.0-0.7); #Lymphocytes 1.7 thou/uL (1.20-3.40); #Monocytes 0.4 thou/uL (0.11-0.59); #Neutrophils 2.2 thou/uL (1.40-6.50); %Basophils 0.8 % (0.0-1.0); %Eosinophils 3.9 % (0.0-10.0); %Lymphocytes 37.6 % (21.0-51.0); %Neutrophils 48.7 % (42.0-75.0); Mean Corpuscular HGB CONC 35.2 g/dL (32.0-36.0); Mean Corpuscular Hemoglobin 34.3 pg (27.0-31.0); Mean Corpuscular Volume 97.5 fL (78.0-98.0); Mean Platelet Volume 7.5 fL (7.4-10.4); Platelet Count 191 thou/uL (130-400); RBC Distribution Width 13.6 % (11.5-14.5); Red Blood Cell (RBC) Count 2.91 mill/uL (4.20-5.40); White Blood Cell (WBC) Count 4.6 thou/uL (4.8-10.8)
[2018-01-07 04:34] LABS: Anion Gap 12 mmol/L (10-20); BUN (Urea Nitrogen) 17 mg/dL (9.8-20.1); Calc. Creatinine Clearance 53 mL/min (70-130); Carbon Dioxide 19 mmol/L (23-31); Chloride 116 mmol/L (98-107); Estimated GFR-MDRD 61; Glucose 90 mg/dL (83-110); Potassium 3.5 mmol/L (3.5-5.1); Sodium 143 mmol/L (136-145)
[2018-01-07] MEDS ORDERED: Cefepime 1 GM in Sodium Chloride 0.9% 100 ML IVPB SCH ×2 (06:30→07:00)
[2018-01-07] MEDS: Enoxaparin Sodium 40 MG/0.4 ML SYRINGE SC SCH (08:16)
--- NOTE | 2018-01-07 09:43 | RAD ---
AP VIEW CHEST: Date: 01/07/18 INDICATION: Concern for pneumonia in this 72-year-old female. COMPARISON: None. IMPRESSION: No pneumonia demonstrated. There are low lung volumes with bibasilar atelectasis. There is mild cardi omegaly without evidence of overt cardiac decompensation. There is scattered degenerative change, par ticularly involving the AC joints and thoracolumbar spine. POS: [facility]
[2018-01-07] MEDS: Sodium Chloride 0.9% 1,000 ML IV SCH (10:51)
--- NOTE | 2018-01-07 11:56 | CON ---
DATE OF CONSULTATION: 01/07/2018 HISTORY OF PRESENT ILLNESS: Patient is a 72-year-old female, patient of Dr. Szymanski who has a history of C. difficile and chronic diarrhea. She reports this has been going on since October. She recently saw Dr. Szymanski on 11/23 and at that time had some left lower quadrant abdomina l pain, C. diff and diarrhea. She seemed to do better on vancomycin and was seen again in the end of November and had persistent diarrhea after finishing course of vancomycin. On 12/09/2017, the patient w as seen again and was on a 6-week taper of vancomycin, still having diarrhea. Her last visit [facility] 01/05/[facility]. She was on her vancomycin taper taking vancomycin every other day. She was given 3 da ys of Bactrim for urinary tract infection. She has had several falls. She did undergo lactoferrin a nd C. difficile. Laboratory testing showed absent lactoferrin and negative C. difficile, both toxin and antigen. She reports she had 3 bowel movements yesterday and 1 today. She had no bowel movement s overnight. She reports no abdominal pain, nausea, vomiting. She lost approximately 15 pounds sinc e this began in October. PAST MEDICAL HISTORY: Significant for nerve disorder, meningioma in the spinal cord, depression, art hritis. PAST SURGICAL HISTORY: Includes appendectomy, back surgery, rotator cuff surgery, colonoscopy back i n 2010. ALLERGIES: Include LIPITOR. SOCIAL HISTORY: She drinks occasional wine. Does not smoke. FAMILY HISTORY: Negative for GI or liver disease. REVIEW OF SYSTEMS: Constitutional: No fever, chills, no weight loss. Eyes: No blurred vision or d ouble vision. ENT: No sore throat or earaches. Cardiovascular: No chest pain or palpitation. Pul monary: No shortness of breath, cough or wheezing. Gastrointestinal: See above. Genitourinary: N o hematuria or dysuria. Musculoskeletal: No joint pain or muscle weakness. Neurologic: No numbnes s or seizure activity. Skin: No rashes. PHYSICAL EXAMINATION: GENERAL: Shows a well-developed, well-nourished white female, in no acute distress. VITAL SIGNS: Temperature 97.9, pulse 56, respiratory rate 16, blood pressure 124/61. HEENT: Unremarkable. NECK: Supple. CHEST: Clear. CARDIOVASCULAR: Regular rate and rhythm. ABDOMEN: Soft, nontender, without organomegaly or masses. RECTAL: Deferred. EXTREMITIES: Normal. LABORATORY DATA: Shows a white blood cell count of 4.6, hemoglobin 10, hematocrit 28.4. Chemistry s howed a CO2 of 20, BUN 23, creatinine 1.32. Urinalysis showed greater than 50 WBCs, large leukocyte esterase, positive nitrite. ASSESSMENT: 1. Chronic diarrhea. 2. History of Clostridium difficile, just having completed a long taper with Clostridium Difficile, toxin and antigen negative, lactoferrin negative. 3. Leukorrhea with possible recurrent urinary tract infection. RECOMMENDATIONS: 1. We will go ahead and proceed with colonoscopy and if negative, random biopsies of colon. 2. We will defer treatment of a UTI to [facility]. 3. Continue probiotic.
[2018-01-07] MEDS ORDERED: MEROPENEM 1 GM/50 ML 1 GM in Premix Bag 1 BAG IVPB SCH (12:00)
--- NOTE | 2018-01-07 14:18 | CON ---
DATE OF CONSULTATION: 01/07/2018 REASON FOR CONSULTATION: Cystitis. HISTORY OF PRESENT ILLNESS: This is a 72-year-old, who has a history of recent episode of Clostridiu m difficile colitis treated with then persistence of intermittent diarrhea with a followup negative C . difficile tests. Eventually, improvement of diarrhea, but still intermittent loose stools as well as a history of recurrent UTIs back to 5 years before admission. Usually once or twice a year, manag ed with oral antimicrobial therapy. About 2 weeks before admission, she had some symptoms of dysuria and suprapubic pain and was told by primary care physician to take an [id number] Azo Standard without improvement. Subsequently, visited with her doctor about a week before admission and was giv en an antibiotic, but she does not recall the name, that she took twice daily for 3 days. Following completion of treatment, she did notice recrudescence of dysuria and the burning sensation in the sup rapubic area. She was admitted after results of urine culture were obtained. She felt a little bit of chills, but no documented fever. No headaches, visual symptoms, sore throat, odynophagia, or dysp hagia. She has a sensation of dry mouth and has had an evaluation for Sjogren's disease in the past. No neck pain. She has chronic right shoulder problems with recent repair. No back pain. No short ness of breath or cough. No abdominal pain outside the suprapubic area. No vomiting, still with int ermittent loose stools every few days, chronic polyarthralgias, no neurological symptoms. PAST MEDICAL HISTORY: Recurrent urinary tract infections, possible urinary retention, previous cysto scopy by Dr. Amaya; possible Sjogren's disease or Sjogren's syndrome; C. difficile colitis, treated; chronic diarrhea. PAST SURGICAL HISTORY: Lumbar laminectomy; meningioma removal; rotator cuff repair, right side; tuba l ligation. SOCIAL HISTORY: Never a smoker. . Lives in the area. FAMILY HISTORY: Noncontributory. ALLERGIES: STATINS. CURRENT MEDICATIONS: Enoxaparin, meropenem, Zofran, GoLYTELY, Florastor, normal saline. PHYSICAL EXAMINATION: VITAL SIGNS: T-max 97.9, blood pressure 120/60, pulse 55, respirations 16, O2 sat 97%. SKIN EXAM: No areas of skin breakdown. Peripheral IV access. Does not have a Barbosa catheter. No l ymphadenopathy. HEENT: Ocular movements conjugate. Oral cavity was unremarkable. NECK: Supple, no jugular vein distention. LUNGS: With symmetric clear breath sounds. HEART: S1 and S2, without murmurs. No S3 or S4. ABDOMEN: Soft, nontender. No distention, no organomegaly, no bladder distention. EXTREMITIES: No joint inflammatory activity. Pulses 1+ in dorsalis pedis. NEUROLOGIC EXAMINATION: Nonfocal including cognitive function. LABORATORY DATA: Admit CBC, the white cell count 5.1, hemoglobin 10.8, MCV 98, platelets 211. Creat inine was 1.32 on arrival, 0.91 after admission. Liver profile normal. Albumin and globulin normal. Urinalysis with greater than 50 wbcs. Toxicology negative. Microbiology, 12/29/2017, culture, pro bably dense with a broad-susceptibility profile, and 01/03/2018 with Citrobacter freundii with suscep tibility to gentamicin, meropenem, tobramycin, cefepime, and amikacin, susceptibility to nitrofuranto in as well. ASSESSMENT: 1. Recurrent urinary tract infections, possible urinary retention, symptoms consistent with cystitis . 2. Clostridium difficile colitis with persistence of diarrhea after treatment. Pending Gastroentero logy evaluation, probably will need colonoscopy. DISCUSSION: The patient will be transitioned to oral Macrodantin for 7 days. Consider low dose prop hylaxis with 50 mg at night. Check postvoid residual bladder scan.
[2018-01-07] MEDS ORDERED: GoLYTELY 4,000 ml Bottle PO SCH (18:00)
[2018-01-07] MEDS: Nitrofurantoin Monohyd/M-Cryst 100 MG CAP PO SCH (20:04)
--- NOTE | 2018-01-07 23:00 | PDOC.PN ---
- Subjective Encounter Start Date: 01/07/18 Encounter Start Time: 12:30 Patient seen and examined for recurrent UTI/diarhea. No new complaints. No overnight events - Objective Resuscitation Status: Resuscitation Status FULL:Full Resuscitation MAR Reviewed: Yes Vital Signs & Weight: Vital Signs (12 hours) Temp Pulse Resp BP BP Pulse Ox 01/07/18 20:00 97.6 F 64 20 64 L 01/07/18 19:32 97.6 F 64 20 145/70 H 98 01/07/18 16:00 97.8 F 66 20 135/77 95 01/07/18 11:00 97.5 F L 55 L 16 122/67 97 Weight Admit Weight 133 lb Weight 133 lb 12.8 oz I&O: 01/06/18 01/07/18 01/08/18 06:59 06:59 06:59 Intake Total 1200 1625 Output Total 575 Balance 625 1625 Result Diagrams: 01/07/18 03:51 01/07/18 03:51 Radiology Reviewed by me: Yes (CXR - Neg) Phys Exam - Physical Examination Constitutional: NAD Respiratory: no wheezing, no rales, no rhonchi, clear to auscultation bilateral Cardiovascular: RRR, no rub no heaves/pulsations Gastrointestinal: soft, non-tender, no distention, positive bowel sounds Musculoskeletal: no edema Neurological: non-focal, normal sensation, moves all 4 limbs Psychiatric: normal affect, A&O x 3 Dx/Plan - Plan DVT proph w/SCDs IMPRESSION: 1. Recurrent UTI 2. Chronic diarrhea with recent C diff 3. RAGHAV on CKD 2 4. Anxiety and depression 5. Chronic Anemia / Other issues per H&P PLAN: Cont Cefepime Cont IVF Colonoscopy in AM due to persistent diaarhea Resume home meds Microbiology 01/05/18 15:10 Stool Stool Lactoferrin - Final 01/05/18 15:10 Stool C. difficile GDH Antigen & Toxins - Final 01/03/18 15:54 Urine clean catch Urine Culture - Final Citrobacter freundii 12/29/17 15:55 Urine clean catch Urine Culture - Final Providencia rettgeri Laboratory Tests 01/02/18 01/04/18 01/06/18 08:58 09:48 14:33 Creatinine 1.58 H 1.43 H 1.32 H 01/07/18 03:51 Creatinine 0.91 Review of Systems - Review of Systems Cardiovascular: negative: chest pain, palpitations, orthopnea, paroxysmal nocturnal dyspnea, edema, light headedness, other Gastrointestinal: negative: Nausea, Vomiting, Abdominal Pain, Diarrhea, Constipation, Melena, Hematochezia, Other - Medications/Allergies Allergies/Adverse Reactions: Allergies Allergy/AdvReac Type Severity Reaction Status Date / Time atorvastatin [From Lipitor] Allergy language Verified 10/25/17 13:47 disability Medications: Current Medications Acetaminophen (Tylenol) 650 mg PO Q4H PRN PRN Reason: Headache/Fever or Pain Aspirin (Ecotrin) 81 mg PO DAILY [facility] Enoxaparin Sodium (Lovenox) 40 mg SC 0900 [facility] Last Admin: 01/07/18 08:16 Dose: 40 mg Escitalopram Oxalate (Lexapro) 10 mg PO DAILY [facility] Sodium Chloride (Normal Saline 0.9%) 1,000 mls @ 75 mls/hr IV .[id number] [facility] Last Admin: 01/07/18 10:51 Dose: 1,000 mls Nitrofurantoin Macrocrystals (Macrobid) 100 mg PO BID [facility] Last Admin: 01/07/18 20:04 Dose: 100 mg Non-Formulary Medication (Vancomycin Hcl [Vancomycin Hcl]) 1 tab PO ASDIR [facility] Ondansetron HCl (Zofran) 4 mg IVP Q6H PRN PRN Reason: Nausea/Vomiting Polyethylene Glycol/Electrolytes (Golytely) 4,000 ml PO 1800 [facility] Stop: 01/07/18 23:59 Last Admin: 01/07/18 17:54 Dose: 4,000 ml Saccharomyces Boulardii (Florastor) 250 mg PO DAILY [facility] Zonisamide (Zonegran) 300 mg PO BID [facility]
[2018-01-08] MEDS: Sodium Chloride 0.9% 1,000 ML IV SCH ×3 (00:50→18:01)
[2018-01-08] MEDS: Nitrofurantoin Monohyd/M-Cryst 100 MG CAP PO SCH ×2 (08:08→20:15)
[2018-01-08] MEDS: Saccharomyces boulardii 250 MG CAP PO SCH ×2 (08:08→20:15)
[2018-01-08] MEDS: Zonisamide 100 MG CAP PO SCH ×2 (08:08→20:16)
[2018-01-08] MEDS: Escitalopram Oxalate 10 mg Tablet PO SCH (08:08)
[2018-01-08] MEDS: Aspirin 81 mg Enteric Coated Tablet PO SCH (08:09)
[2018-01-08] MEDS: Enoxaparin Sodium 40 MG/0.4 ML SYRINGE SC SCH (08:09)
[2018-01-08] MEDS ORDERED: Vancomycin HCl 25 MG/ML Oral PO SCH (09:00)
[2018-01-08] MEDS ORDERED: Ondansetron HCl/PF 4 MG/2 ML Vial IVP PRN (12:31)
[2018-01-08] MEDS ORDERED: Promethazine HCl 25 MG/ML VIAL SLOW IVP PRN (12:31)
[2018-01-08] MEDS ORDERED: Promethazine HCl 25 MG/ML VIAL IM PRN (12:31)
--- NOTE | 2018-01-08 13:54 | PDOC.PN ---
- Subjective Encounter Start Date: 01/08/18 Encounter Start Time: 08:45 Patient seen and examined for UTI/Chronic diarrhea. No new complaints. No overnight events - Objective Resuscitation Status: Resuscitation Status FULL:Full Resuscitation MAR Reviewed: Yes Vital Signs & Weight: Vital Signs (12 hours) Temp Pulse Resp BP BP Pulse Ox 01/08/18 12:50 97.8 F 63 16 144/64 H 93 L 01/08/18 08:00 97.8 F 60 16 01/08/18 07:34 97.8 F 60 16 135/71 96 01/08/18 04:00 97.7 F 60 20 135/75 94 L Weight Admit Weight 133 lb Weight 133 lb 12.8 oz I&O: 01/07/18 01/08/18 01/09/18 06:59 06:59 06:59 Intake Total 1200 1625 Output Total 575 Balance 625 1625 Result Diagrams: 01/07/18 03:51 01/07/18 03:51 Phys Exam - Physical Examination Constitutional: NAD Respiratory: no wheezing, no rhonchi Cardiovascular: RRR, no rub Gastrointestinal: soft, non-tender, positive bowel sounds Musculoskeletal: no edema Neurological: moves all 4 limbs Dx/Plan - Plan DVT proph w/lovenox, DVT proph w/SCDs IMPRESSION: 1. Recurrent UTI 2. Chronic diarrhea with recent C diff 3. RAGHAV on CKD 2 4. Anxiety and depression 5. Chronic Anemia / Other issues per H&P PLAN: Cont Atbx per ID DC IVF tonight Colonoscopy today Cont current meds as below Await Urine cultures Cont PO Vancomycin Bladder scan 133 ml Microbiology 01/06/18 16:33 Urine clean catch Urine Culture - Preliminary Gram Negative Horacio Review of Systems - Review of Systems Respiratory: negative: Cough, Dry, Shortness of Breath, Hemoptysis, SOB with Excertion, Pleuritic Pain, Sputum, Wheezing Cardiovascular: negative: chest pain, palpitations, orthopnea, paroxysmal nocturnal dyspnea, edema, light headedness, other - Medications/Allergies Allergies/Adverse Reactions: Allergies Allergy/AdvReac Type Severity Reaction Status Date / Time atorvastatin [From Lipitor] Allergy language Verified 10/25/17 13:47 disability Medications: Current Medications Acetaminophen (Tylenol) 650 mg PO Q4H PRN PRN Reason: Headache/Fever or Pain Aspirin (Ecotrin) 81 mg PO DAILY [facility] Last Admin: 01/08/18 08:09 Dose: Not Given Enoxaparin Sodium (Lovenox) 40 mg SC 0900 [facility] Last Admin: 01/08/18 08:09 Dose: Not Given Escitalopram Oxalate (Lexapro) 10 mg PO DAILY [facility] Last Admin: 01/08/18 08:08 Dose: 10 mg Sodium Chloride (Normal Saline 0.9%) 1,000 mls @ 75 mls/hr IV .[id number] [facility] Last Admin: 01/08/18 11:59 Dose: Not Given Nitrofurantoin Macrocrystals (Macrobid) 100 mg PO BID [facility] Last Admin: 01/08/18 08:08 Dose: 100 mg Ondansetron HCl (Zofran) 4 mg IVP Q6H PRN PRN Reason: Nausea/Vomiting Ondansetron HCl (Pacu-Zofran) 4 mg IVP ONE PRN PRN Reason: Nausea/Vomiting Stop: 01/08/18 15:32 Promethazine HCl (Pacu-Phenergan) 6.25 mg SLOW IVP ONE PRN PRN Reason: Nausea/Vomiting Stop: 01/08/18 15:32 Promethazine HCl (Pacu-Phenergan) 6.25 mg IM ONE PRN PRN Reason: Nausea/Vomiting Stop: 01/08/18 15:32 Saccharomyces Boulardii (Florastor) 250 mg PO DAILY [facility] Last Admin: 01/08/18 08:08 Dose: 250 mg Saccharomyces Boulardii (Florastor) 250 mg PO BID [facility] Vancomycin HCl (First Vancomycin) 250 mg PO Q2D [facility] Zonisamide (Zonegran) 300 mg PO BID [facility] Last Admin: 01/08/18 08:08 Dose: 300 mg
--- NOTE | 2018-01-08 14:01 | OP-2 ---
PREOPERATIVE DIAGNOSIS: Chronic diarrhea. PROCEDURE: After informed consent was obtained, the patient was placed in left lateral decubitus pos ition. Anesthesia was administered per the Anesthesia Department. Forward-viewing endoscope was ins erted into the rectum. After perianal inspection, rectal exam were normal. It was passed through th e cecum and into the ileum with ease. The ileum, ileocecal valve, and appendiceal orifice were ana l. The prep was excellent. The terminal ileum was normal. The ascending, transverse, descending, s igmoid, and rectum were normal except for some sigmoid diverticula. Random biopsies were taken from the right and left colon. ASSESSMENT: 1. Sigmoid diverticulosis coli. 2. Otherwise normal ileocolonoscopy. RECOMMENDATIONS: 1. Await histopathology. 2. Begin Florastor and continue this as long as the patient is on antibiotics. 3. Stable for discharge from GI standpoint.
[2018-01-08] MEDS ORDERED: PROPOFOL 200 MG/20 ML VIAL ONE (15:17)
[2018-01-09] MEDS: Saccharomyces boulardii 250 MG CAP PO SCH ×2 (08:35→08:36)
[2018-01-09] MEDS: Nitrofurantoin Monohyd/M-Cryst 100 MG CAP PO SCH (08:36)
[2018-01-09] MEDS: Escitalopram Oxalate 10 mg Tablet PO SCH (08:36)
[2018-01-09] MEDS: Aspirin 81 mg Enteric Coated Tablet PO SCH (08:36)
[2018-01-09] MEDS: Zonisamide 100 MG CAP PO SCH (08:36)
--- NOTE | 2018-01-09 11:45 | PRG ---
DATE OF SERVICE: 01/09/2018 SUBJECTIVE: The patient is complaining of some left lower quadrant pain. Apparently, she has had th at for months and has not changed much. She is tolerating a diet well. She has had no diarrhea. OBJECTIVE: VITAL SIGNS: Temperature 97.9, pulse 52, respiratory rate 18, blood pressure 145/73. CHEST: Clear. CARDIOVASCULAR: Regular rate and rhythm. ABDOMEN: Soft and nontender without organomegaly or masses. LABORATORY DATA: No new laboratory. ASSESSMENT: 1. Chronic diarrhea - the patient has not had any diarrhea since colonoscopy. 2. Left lower quadrant abdominal pain - apparently this has been present for many months and workup has been negative. 3. Recurrent Clostridium difficile. 4. Recurrent urinary tract infection. RECOMMENDATIONS: 1. Stable for discharge from GI standpoint. 2. Florastor ongoing twice daily.
[2018-01-09 12:20] VITALS: BP 124/66; TEMP 97.3
--- NOTE | 2018-01-10 10:19 | DIS ---
DATE OF DISCHARGE: 01/09/2018 DISCHARGE DISPOSITION: Home. FOLLOWUP: Follow up with primary care physician, Dr. Cecilia Quinn in 1 week. Follow up with Gastr oenterology, Dr. Louie Argueta in 2 weeks. DISCHARGE MEDICATIONS: Macrobid 100 mg twice a day for 1 week. All other home medications were resu med. BRIEF HOSPITAL COURSE: The patient is a 72-year-old female with recent Clostridium difficile colitis , on vancomycin as well as recurrent UTIs, presented to the emergency room with altered mentation. Mary story refer to the history and physical dated 01/06/[address] Carl for further details. The patient was admitted to the hospital with a diagnosis of toxic metabolic encephalopathy secondary to recurrent UTI. The patient was seen by Infectious Disease, Dr. Carranza. Urine culture showed Citr obacter sensitive to Macrobid. A urine culture 3 days ago as outpatient showed the same organism. A stool for C. diff was negative prior to this hospitalization. She is currently on vancomycin. Due to chronic diarrhea the patient was seen by Gastroenterology. A colonoscopy was performed that was e ssentially negative. Biopsies were taken. She will follow up with Gastroenterology as outpatient. She also had some acute kidney injury that has improved with IV hydration. FINAL DIAGNOSES: 1. Toxic metabolic encephalopathy, multifactorial. 2. Urinary tract infection secondary to Citrobacter. 3. Acute kidney injury on chronic kidney disease stage 2, resolved. 4. Chronic diarrhea, currently on vancomycin taper. 5. Anxiety and depression. 6. Chronic anemia. 7. Osteoporosis. Plan of care was discussed with the patient and the family in detail. They stated understanding.
== END 2018-01-09 12:25 | disposition home or self-care (01) | DRG 391 ==
LOC: ERS 13:56 → T4-B 18:00
PROVIDERS: ADMIT Internal Medicine; ATTEND Internal Medicine
PROC: 0DBG8ZX Excision of Left Large Intestine, Via Natural or Artificial Opening Endoscopic, Diagnostic (ICD-10-PCS; principal; 2018-01-08)
PROC: 0DBF8ZX Excision of Right Large Intestine, Via Natural or Artificial Opening Endoscopic, Diagnostic (ICD-10-PCS; 2018-01-08)
DX: K52.9 Noninfective gastroenteritis and colitis, unspecified (principal); G92 Toxic encephalopathy; N17.9 Acute kidney failure, unspecified; N39.0 Urinary tract infection, site not specified; M81.0 Age-related osteoporosis without current pathological fracture; F32.9 Major depressive disorder, single episode, unspecified; D50.9 Iron deficiency anemia, unspecified; K57.30 Diverticulosis of large intestine without perforation or abscess without bleeding; N18.2 Chronic kidney disease, stage 2 (mild); F41.9 Anxiety disorder, unspecified; Z79.82 Long term (current) use of aspirin
CPT/HCPCS: 36415; 71045; 80048; 80053; 80306; 81001; 81003; 81015; 82550; 82553; 83605; 83630; 84484; 85025; 87077; 87086; 87186; 87324; 87449; 96365; J0692; J1650; J2185; J2704; J7050

== ENCOUNTER 2018-01-12 13:03 | Outpatient (CLI) | payer MEDICARE, BC ==
--- NOTE | 2018-01-12 15:01 | ULT ---
PELVIC SONOGRAM TRANSABDOMINAL IMAGING WITH DUPLEX EVALUATION: History: Ovarian cyst. FINDINGS: Urinary bladder is unremarkable. The uterus has a heterogeneous echotexture and is 5.6 cm. Endometriu m 0.5 cm. No free fluid. Right ovary not visualized. Left ovary is 3.5 cm with good color and spectral doppler flow. Oval cystic lesion is 2.3 x 2.3 x 2.2 cm greatest diameters. Appearance is unchanged from the previous exam 11-04-17. IMPRESSION: 1. Left ovarian cyst, 2.3 cm. 2. No other significant abnormalities are demonstrated. POS: [facility]
== END 2018-01-12 13:04 | disposition home or self-care (01) ==
LOC: ULT 13:03
PROVIDERS: ATTEND Internal Medicine
DX: N83.202 Unspecified ovarian cyst, left side (principal); N18.3 Chronic kidney disease, stage 3 (moderate); D63.1 Anemia in chronic kidney disease; R53.83 Other fatigue; Z79.899 Other long term (current) drug therapy
CPT/HCPCS: 36415; 76856; 80053; 82607; 82728; 83540; 83550; 84443; 85025; 93976

== ENCOUNTER 2018-01-26 09:35 | Outpatient (CLI) | payer MEDICARE, BC ==
--- NOTE | 2018-01-26 13:37 | PET ---
PET SCAN DEMENTIA AND PET BRAIN CT HEAD NONCONTRAST: INDICATION: Other Alzheimer's disease, dementia. RADIOPHARMACEUTICAL: 7.08 mCi Fluorine 18-FDG IV. FINDINGS: Evaluation of PET imaging reveals relatively symmetric metabolic activity of the bilateral cerebral h emispheres without a significant focal hypometabolic region. Evaluation of noncontrast head CT reveals mild parenchymal volume with compensatory dilatation of the ventricular system. No acute mass effect or midline shift. IMPRESSION: 1. No significant, asymmetric hypometabolic regions of the cerebral hemispheres. 2. There is mild parenchymal atrophy with compensatory dilatation of the ventricular system. POS: [facility]
== END 2018-01-26 09:36 | disposition home or self-care (01) ==
LOC: PET 09:35
PROVIDERS: ATTEND Psychiatry & Neurology Neurology
DX: N83.202 Unspecified ovarian cyst, left side (principal); G30.8 Other Alzheimer's disease; G31.9 Degenerative disease of nervous system, unspecified; G93.89 Other specified disorders of brain
CPT/HCPCS: 78608; A9552

== ENCOUNTER 2018-02-23 07:58 | Outpatient (CLI) | payer MEDICARE, BC ==
--- NOTE | 2018-02-23 10:31 | MRI ---
MRI RIGHT SHOULDER WITHOUT CONTRAST: INDICATIONS: History of prior right shoulder surgery, status post fall, now with recurrent right shoulder pain. COMPARISON: Prior MRI of the right shoulder dated 09/13/2017. TECHNIQUE: Multiplanar, multisequence MR images were obtained of the right shoulder without IV contrast. FINDINGS: There has been interval development of a recurrent tear of the supraspinatus that is full-thickness a nd full-width. The tear measures 2.6 x 1.7 cm in greatest AP and mediolateral dimensions, respective ly. There is mild muscular atrophy of the supraspinatus. The partial-thickness articular surface te ar of the anterior mid infraspinatus, near the footprint, is stable. There has been interval develop ment of some intratendinous delamination involving the cranial to mid aspect of the subscapularis chapis t is low grade. There has been an interval biceps tenodesis. There is stable degenerative fraying o f the superior glenoid labrum. The glenohumeral articular surface appears relatively well maintained . There is fluid in the subacromial/subdeltoid space. The moderate AC joint osteoarthrosis is stabl e. No enlarged lymph nodes are evident. IMPRESSION: 1. Recurrent full-thickness, full-width, supraspinatus tear with retraction of the tendon approximat nora 1.7 cm. 2. Interval biceps tenodesis. 3. Stable partial-thickness articular surface tear of the anterior to mid infraspinatus. 4. Interval development of an internal delaminating tear of the cranial to mid aspect of the subscap ularis, which is low grade. 5. Stable degenerative fraying of the superior glenoid labrum. 6. Stable moderate acromioclavicular joint osteoarthrosis. 7. Interval development of mild muscular atrophy of the supraspinatus. POS: [facility]
== END 2018-02-23 07:59 | disposition home or self-care (01) ==
LOC: SCSMRI 07:58
PROVIDERS: ATTEND Orthopaedic Surgery
DX: M25.511 Pain in right shoulder (principal); M75.101 Unspecified rotator cuff tear or rupture of right shoulder, not specified as traumatic; M75.91 Shoulder lesion, unspecified, right shoulder; M19.011 Primary osteoarthritis, right shoulder; M62.511 Muscle wasting and atrophy, not elsewhere classified, right shoulder

== ENCOUNTER 2018-03-06 13:41 | Outpatient (CLI) | payer MEDICARE, BC ==
[2018-03-06 15:43] LABS: Hemoglobin 11.9 g/dL (12.0-16.0); Mean Corpuscular HGB CONC 31.9 g/dL (32.0-36.0); Mean Corpuscular Hemoglobin 32.3 pg (27.0-31.0); Mean Platelet Volume 7.9 fL (7.4-10.4); Platelet Count 232 thou/uL (130-400); RBC Distribution Width 13.9 % (11.5-14.5); Red Blood Cell (RBC) Count 3.69 mill/uL (4.20-5.40); White Blood Cell (WBC) Count 6.3 thou/uL (4.8-10.8)
--- NOTE | 2018-03-07 12:50 | EKG ---
Test Reason : Blood Pressure : / mmHG Vent. Rate : 058 BPM Atrial Rate : 058 BPM P-R Int : 166 ms QRS Dur : 088 ms QT Int : 442 ms P-R-T Axes : 039 060 060 degrees QTc Int : 433 ms Sinus bradycardia Low voltage QRS Nonspecific ST abnormality Abnormal ECG Confirmed by NIKHIL ST ([id number]) on 03/07/2018 12:49:58 PM Referred By: SHEA Confirmed By:NIKHIL ST
== END 2018-03-06 13:42 | disposition home or self-care (01) ==
LOC: LABBT 13:41
PROVIDERS: ATTEND Orthopaedic Surgery
DX: Z01.818 Encounter for other preprocedural examination (principal); M75.101 Unspecified rotator cuff tear or rupture of right shoulder, not specified as traumatic
CPT/HCPCS: 85027; 93005; 93010

== ENCOUNTER → 2018-03-07 | Day surgery (SDC) | payer MEDICARE, BC ==
[2018-03-06 14:09] VITALS: BMI 23.0
[~2018-03-07] MED LIST changes: +Bupivacaine/Epinephrine 0.25% 30 ML VIAL ONE; +CEFAZOLIN 1 GM VIAL ONE; +Fentanyl 100 MCG/2 ML VIAL IV PRN; +Fentanyl 100 MCG/2 ML VIAL ONE; +Glycopyrrolate 0.2 MG/ML 5 ML SYRINGE ONE; +HYDROcodone/Acetaminophen 5/325 mg Tablet PO PRN; -ISOVUE-370 76%-LOCM 1 ML ONE; +Ketorolac Tromethamine 30 MG/ML VIAL ONE; +Lidocaine 1% PF 5 ML VIAL ONE; +Midazolam HCl 2 mg/2 ml Vial ONE; +Ondansetron PF 4 MG/2 ML Vial IVP PRN; +Ondansetron PF 4 MG/2 ML Vial ONE; +PROPOFOL 200 MG/20 ML VIAL ONE; +Promethazine HCl 25 MG/ML VIAL IM PRN; +Ropivacaine 0.2% 550 ML 550 ML NERVE BLCK SCH; +Ropivacaine 0.2% HCl/PF (40 MG/20 ML VIAL) ONE; +Ropivacaine 0.5% HCl/PF (150 MG/30 ML VIAL) ONE; +Sodium Chloride 0.9% 100 ML ONE; +Zolpidem Tartrate 5 MG TAB PO PRN; +ePHEDrine/0.9% NaCl/PF SYRINGE 50 mg/10 ml ONE; +traMADol HCl 50 MG TAB PO PRN
--- NOTE | 2018-03-07 15:14 | OP ---
DATE OF SERVICE: 03/07/2018 PREOPERATIVE DIAGNOSIS: Right rotator cuff repair, status post fall with re- tear. POSTOPERATIVE DIAGNOSIS: Right rotator cuff repair, status post fall with re- tear. PROCEDURE PERFORMED: Right rotator cuff repair. STAFF: Blair Randolph M.D. MANAGEMENT DEVELOPER: None. ANESTHESIA: Dr. Khan. The patient received a general intubation with interscalene block. ESTIMATED BLOOD LOSS: 30 mL. TOURNIQUET TIME: None. IMPLANTS: Times two 5.5 corkscrew metal corkscrews and times three 4.7 SwiveLock. ANTIBIOTICS: The patient received vancomycin 1 gram. COMPLICATIONS: None. HISTORY OF PRESENT ILLNESS: Ms. Leos is a 72-year-old female, who underwent a rotator cuff repair on 10/27/2017. The patient subsequently got C. difficile colitis and being treated for what supposedly is a cellulitis. The patient then had episodes where she fell 3 times since that secondary to mechanical issues and had injuries to her right shoulder. I took an MRI of her right shoulder showing the re-tear. The patient did have pain relief postoperatively , but after the falls the pain increased. I discussed with the patient and family preoperatively that I would give her vancomycin to decrease the risk of having Clostridium difficile colitis with treatment for C. diff. I discussed the risks and benefits of surgery to include pain, scar, bleeding, infection, damage to vital structures, decreased range of motion, strength, retear, failure of repair, need for further surgeries, loss of life or limb. The patient understood the risks and benefits and elected to proceed. PROCEDURE IN DETAIL: Time out was performed designating the patient's right upper extremity as the operative site based on sight, consents, markings. After completion of timeout, the patient's working anterior portal was placed through the previous scar incision intraarticularly. I saw the tear with the suture strands that were not connected. I cut the sutures that I could see intraoperatively. The biceps had already been torn. I then moved subacromially , I removed the suture bridge and all the sutures that were within the shoulder that were visualized, debrided out and then created. I debrided the articular cartilage about 5 mm to help with some healing position. After debriding it, I had placed my lateral anchor portal. I placed an anterolateral portal, placed a metal anchor, 5.5 anchor into the bone, passed 2 sutures in the anterior limb of the subscapularis and then 6 into the infraspinatous and the supraspinatus. I then placed a second anchor posteriorly and did the same thing. I tied my horizontal mattress sutures. I then did double row. I placed 1 anchor, which pulled out. We tried to remove the eyelet. The anchor was underneath the soft tissues, which I could not get to. I then moved and placed two more 4.75 SwiveLock and placed cement to bone, completed my double row repair with the patient's somewhat tenuous tissue. The patient will remain in a sling. Begin elbow, wrist, and hand motion. She will follow me up in 2 weeks. Patient's outlook is guarded. She will follow up with [facility] if she has any further complications. The patient will be sent home with tramadol. This is the primary treatment and hydrocodone if her pain increases. JESSICA
== END ==
LOC: SDC 05:30
PROVIDERS: ATTEND Orthopaedic Surgery
PROC: 0LM14ZZ Reattachment of Right Shoulder Tendon, Percutaneous Endoscopic Approach (ICD-10-PCS; principal; 2018-03-07)
PROC: 0RHJ44Z Insertion of Internal Fixation Device into Right Shoulder Joint, Percutaneous Endoscopic Approach (ICD-10-PCS; 2018-03-07)
DX: S46.011A Strain of muscle(s) and tendon(s) of the rotator cuff of right shoulder, initial encounter (principal); S46.211A Strain of muscle, fascia and tendon of other parts of biceps, right arm, initial encounter; F41.9 Anxiety disorder, unspecified; F32.9 Major depressive disorder, single episode, unspecified; M19.90 Unspecified osteoarthritis, unspecified site; M35.00 Sjogren syndrome, unspecified; N18.3 Chronic kidney disease, stage 3 (moderate); Z79.82 Long term (current) use of aspirin; Z79.899 Other long term (current) drug therapy; Z88.1 Allergy status to other antibiotic agents; Z88.8 Allergy status to other drugs, medicaments and biological substances; Z98.890 Other specified postprocedural states; W19.XXXA Unspecified fall, initial encounter
CPT/HCPCS: 29827; A4306; C1713; J0690; J1885; J2001; J2250; J2405; J2704; J2795; J3010; J3370; J7050

== ENCOUNTER 2018-08-14 14:10 | Outpatient (CLI) | payer MEDICARE, BC ==
--- NOTE | 2018-08-14 14:57 | RAD ---
LEFT HAND 3 VIEWS: HISTORY: Arthritis. Hand pain. FINDINGS: Mild DJD at the 1st carpometacarpal joint. There is mild narrowing of the radiocarpal joint with cho ndrocalcinosis. MCP joints are unremarkable. IP joints are unremarkable with minimal degenerative change. No erosiv e change. 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 Very mild degenerative joint dis ease at the metacarpophalangeal and interphalangeal joints. No acute process. POS: [facility]
--- NOTE | 2018-08-14 15:01 | RAD ---
RIGHT THUMB 3 VIEWS: HISTORY: Pain in right thumb. FINDINGS: Mild DJD at the 1st carpometacarpal. Mild DJD at the 1st MCP joint. Minimal DJD at the IP joint. N o fracture or acute abnormality. IMPRESSION: Mild degenerative change noted. POS: [facility]
== END 2018-08-14 14:11 | disposition home or self-care (01) ==
LOC: BICRAD 14:10
PROVIDERS: ATTEND Internal Medicine
DX: M79.644 Pain in right finger(s) (principal); M18.0 Bilateral primary osteoarthritis of first carpometacarpal joints; M19.042 Primary osteoarthritis, left hand; M19.041 Primary osteoarthritis, right hand
CPT/HCPCS: 36415; 80053; 83520; 85025; 86200; 87045; 87046; 87328; 87329; 87449; 87899

== ENCOUNTER 2018-08-14 14:32 | Outpatient (CLI) | payer MEDICARE, BC ==
--- NOTE | 2018-08-14 15:24 | MMO ---
Bilateral MAMMO Bilat Screen [facility]. CLINICAL HISTORY: Patient is 73 years old and is seen for screening. The patient has the following family history of breast cancer: paternal aunt; paternal aunt and paternal aunt. The patient has no personal history of cancer. VIEWS: The views performed were: bilateral craniocaudal with tomosynthesis and bilateral mediolateral oblique with tomosynthesis. FILMS COMPARED: The present examination has been compared to prior imaging studies performed at on 08/21/2007, 09/06/2008, 11/12/2009 and 01/20/2011. MAMMOGRAM FINDINGS: The breasts are heterogeneously dense, which could obscure a lesion on mammography. There are stable benign appearing calcifications seen in both breasts. There are no suspicious masses, suspicious calcifications, or new areas of architectural distortion. IMPRESSION: THERE IS NO MAMMOGRAPHIC EVIDENCE OF MALIGNANCY. A ROUTINE FOLLOW-UP MAMMOGRAM IN 1 YEAR IS RECOMMENDED. THE RESULTS OF THIS EXAM WERE SENT TO THE PATIENT. ACR BI-RADS Category 2 - Benign finding MAMMOGRAPHY NOTE: 1. A negative mammogram report should not delay a biopsy if a dominant of clinically suspicious mass is present. 2. Approximately 10% to 15% of breast cancers are not detected by mammography. 3. Adenosis and dense breasts may obscure an underlying neoplasm.
== END 2018-08-14 14:33 | disposition home or self-care (01) ==
LOC: BICMAMMO 14:32
PROVIDERS: ATTEND Internal Medicine
DX: Z12.31 Encounter for screening mammogram for malignant neoplasm of breast (principal); Z80.3 Family history of malignant neoplasm of breast
CPT/HCPCS: 77063; 77067

== ENCOUNTER 2018-10-24 08:12 | Outpatient (CLI) | payer MEDICARE, BC ==
--- NOTE | 2018-10-24 11:20 | CT ---
CT ABDOMEN AND PELVIS WITH AND WITHOUT CONTRAST: HISTORY: Urinary frequency. Unable to urinate. Incontinence. TECHNIQUE: Pre and post contrast enhanced CT images of the abdomen and pelvis obtained before and after the adm inistration of IV contrast. FINDINGS: The lung bases are unremarkable. No evidence of free intraperitoneal air is seen. There is a radiop aque catheter within the urinary bladder. The bladder is moderately distended. The liver, spleen, gallbladder, and pancreas are unremarkable. The adrenal glands are unremarkable. The kidneys are un remarkable, except for a tiny, approximately 2 mm, upper pole left renal calculus. An approximately 5 mm of upper pole left renal hypodense area is seen, likely representing a cortical cy st. No dilated loops of small bowel seen. The colon contains a large amount of stool. Post drainage, the bladder is decompressed without significant distention. There is a left ovarian cyst o r cystic lesion present, diameter measuring approximately 2.4 cm. IMPRESSION: Unremarkable pre and post contrast enhanced CT images of the abdomen and pelvis. Transcribed Date/Time: 10/24/2018 11:44 AM
--- NOTE | 2018-10-24 11:31 | CT ---
CYSTOGRAM WITH AND WITHOUT CONTRAST: HISTORY: Urinary incontinence. TECHNIQUE: CT images obtained through the pelvis. FINDINGS: The urinary bladder contains an indwelling catheter. The bladder fills normally. No evidence of ext ravasation of contrast seen. No definite evidence of contrast reflux seen. No significant post void residue seen. The bladder contracts fairly normally post drainage. IMPRESSION: Unremarkable CT cystogram. Transcribed Date/Time: 10/24/2018 11:52 AM
== END 2018-10-24 08:13 | disposition home or self-care (01) ==
LOC: CT 08:12
PROVIDERS: ATTEND Urology
DX: N39.41 Urge incontinence (principal); N18.9 Chronic kidney disease, unspecified
CPT/HCPCS: 72194; 74178

== ENCOUNTER 2018-11-27 10:00 | Outpatient (CLI) | payer MEDICARE, BC ==
--- NOTE | 2018-11-27 12:24 | BD ---
DEXA BONE DENSITY STUDY: Date: 11/27/18 HISTORY: Postmenopausal. FINDINGS: Right Hip: Right Femoral Neck: 0.690 T-Score: -1.4 Total 0.884 T-Score: -0.5 Left Hip: Left Femoral Neck: 0.652 T-Score: -1.8 Total 0.922 T-Score: -0.2 IMPRESSION: 1. Osteopenia of the right and left femoral necks. 2. 10 year fracture risk for major osteoporotic fracture is 12% and for a hip fracture is 2.6%. POS: [facility]
--- NOTE | 2018-11-27 14:12 | MRI ---
MRI LEFT KNEE WITHOUT CONTRAST: HISTORY: M23.52, recurrent left knee pain. COMPARISON: None. FINDINGS: Medial meniscus: Mild intrameniscal degeneration. No displaced tear. 1-2 mm medial gutter extrusion. Lateral meniscus: Mild free edge fraying without a displaced tear. Mild intrameniscal degeneration. ACL, PCL, MCL, and LCL are all intact. Extensor mechanism: Quadriceps tendon, patella, and patellar tendon are intact. Cartilage: There is cartilage denuding of the lateral patellar facet with high-grade cartilage fissures of the l ateral trochlea with subcortical cysts. Medial Compartment: There is a high-grade chondral defect, near full-thickness, central weightbearing surface medial femo ral condyle measuring 7 mm in transverse x 1.2 cm in AP dimension. Lateral compartment: There chondral delamination of the central weightbearing surface lateral to the plateau with adjacent cartilage high-grade fissuring and fraying. Soft tissues: There is a calcified body posterior recess along the lateral margin of the ACL origin measuring 1.5 x 0.6 cm. No significant popliteus bursa effusion. Muscles: Muscle signal and bulk are normal. IMPRESSION: 1. Mild intrameniscal degeneration of the medial meniscus with 1-2 mm medial gutter extrusion, free edge fraying, and mild loss of hoop stress. 2. Multifocal chondromalacia of the patellofemoral compartment. 3. Calcified body of the posterior recess as described. 4. Grade 3 chondromalacia lateral compartment. POS: [facility]
== END 2018-11-27 10:01 | disposition home or self-care (01) ==
LOC: BICMAMMO 10:00
PROVIDERS: ATTEND Internal Medicine
DX: Z13.820 Encounter for screening for osteoporosis (principal); Z78.0 Asymptomatic menopausal state; M23.52 Chronic instability of knee, left knee; M85.89 Other specified disorders of bone density and structure, multiple sites; M17.12 Unilateral primary osteoarthritis, left knee; M22.42 Chondromalacia patellae, left knee
CPT/HCPCS: 77080

== ENCOUNTER 2019-06-12 09:33 | Outpatient (CLI) | payer MEDICARE, BC ==
--- NOTE | 2019-06-12 12:00 | CT ---
CT Abdomen Pelvis W Con HISTORY: Left lower quadrant pain COMPARISON: 10/24/2018 and 11/04/2017 FINDINGS: The lung bases are clear. A small hiatal hernia is again seen. No calcified gallstones are noted. The re is a calcified granuloma in the spleen. There is decreased attenuation in the liver compared to the spleen, consistent with fatty infiltration. The pancreas, adrenal glands and kidneys are normal e xcept for a tiny/punctate nonobstructing left renal calculus. No free air, free fluid or lymphadenopathy seen in the abdomen or pelvis. There are vascular calcific ations without evidence of aneurysmal dilatation of the abdominal aorta. Uterus and ovaries are present. The 2.5 cm left adnexal/ovarian cystic masses stable since 11/04/2017. The small bowel loops are not abnormally dilated. No pericolonic inflammatory changes are seen. There are degenerative changes in the spine. IMPRESSION: 1. Small hiatal hernia 2. Fatty liver 3. Punctate nonobstructing left renal calculus 4. Stable 2.5 cm left adnexal/ovarian cystic mass since 11/04/2017. 5. No evidence of acute process.
[2019-06-12] MEDS ORDERED: Iopamidol 370 76% 100 ML VIAL ONE (14:42)
[2019-06-12] MEDS ORDERED: Iopamidol 370 76% 50 ML VIAL FS ONE (14:42)
== END 2019-06-12 09:34 | disposition home or self-care (01) ==
LOC: CT 09:33
PROVIDERS: ATTEND Physician Assistant
DX: K57.92 Diverticulitis of intestine, part unspecified, without perforation or abscess without bleeding (principal); K44.9 Diaphragmatic hernia without obstruction or gangrene; K76.0 Fatty (change of) liver, not elsewhere classified; N20.0 Calculus of kidney; N89.8 Other specified noninflammatory disorders of vagina
CPT/HCPCS: 74177; Q9967

== ENCOUNTER 2019-08-24 09:46 | Outpatient (CLI) | payer MEDICARE, BC ==
--- NOTE | 2019-08-24 10:34 | RAD ---
EXAM: XR Lumbar Spine 2 Or 3 View PROVIDED CLINICAL HISTORY: Lumbar back pain. Patient states pain extends into both hips right greater than left. COMPARISON: None FINDINGS: AP and lateral views lumbar spine with weightbearing are provided. There is a mild compression fractu re involving the superior endplate of the L1 vertebral body of indeterminate age. Remaining vertebral body heights are within normal limits. Multilevel degenerative changes are seen in the lowe r thoracic as well as the lumbar spine with multilevel osteophytes and facet hypertrophic changes noted. There is narrowing of the intervertebral disc spaces at all levels greatest involving the lowe r lumbar spine. Trace retrolisthesis of L2 on L3 and L3 on L4 is noted. IMPRESSION: 1. Indeterminate age mild compression fracture superior endplate L1 vertebral body. 2. Trace retrolisthesis of L2 on L3 and L3 on L4. 3. Multilevel degenerative changes.
--- NOTE | 2019-08-24 10:51 | RAD ---
THORACIC SPINE: INDICATION: Thoracic back pain. FINDINGS: Comparison is made to thoracic films from 2016. Thoracic vertebrae maintain height and alignment. There are moderate degenerative changes throughout with loss of disk space and hypertrophic spurring. No evidence of acute compression deformity or fr acture. IMPRESSION: Degenerative changes of the thoracic spine. No evidence of acute compression deformity. POS: [facility]
--- NOTE | 2019-08-24 10:52 | RAD ---
LEFT HIP 2 VIEWS: Date: 08/24/2019 HISTORY: Hip pain. Recent fall. FINDINGS: Femoral head contour normal. Very mild degenerative change. No evidence of acute fracture. IMPRESSION: No evidence of acute fracture. POS: [facility]
--- NOTE | 2019-08-24 11:04 | RAD ---
RIGHT HIP 2 VIEWS: HISTORY: Hip pain. Recent fall. FINDINGS: Femoral head contour is normal. No evidence of fracture identified. No osseous abnormality. IMPRESSION: No acute findings. POS: [facility]
== END 2019-08-24 09:47 | disposition home or self-care (01) ==
LOC: BICRAD 09:46
PROVIDERS: ATTEND Internal Medicine
DX: M25.551 Pain in right hip (principal); M25.552 Pain in left hip; M54.6 Pain in thoracic spine; M54.5 Low back pain; M47.814 Spondylosis without myelopathy or radiculopathy, thoracic region; M47.816 Spondylosis without myelopathy or radiculopathy, lumbar region
CPT/HCPCS: 72072; 72100

== ENCOUNTER 2019-09-11 11:45 | Outpatient (CLI) | payer MEDICARE, BC ==
--- NOTE | 2019-09-11 15:30 | MMO ---
Bilateral MAMMO Bilat Screen [facility]. CLINICAL HISTORY: Patient is 74 years old and is seen for screening. The patient has the following family history of breast cancer: paternal aunt; paternal aunt and paternal aunt. The patient has no personal history of cancer. VIEWS: The views performed were: bilateral craniocaudal with tomosynthesis and bilateral mediolateral oblique with tomosynthesis. FILMS COMPARED: The present examination has been compared to prior imaging studies performed at [facility] on 09/06/2008, 11/12/2009, 01/20/2011 and 08/14/2018. This study has been interpreted with the assistance of computer-aided detection. MAMMOGRAM FINDINGS: The breasts are heterogeneously dense, which could obscure a lesion on mammography. There are no suspicious masses, suspicious calcifications, or new areas of architectural distortion. IMPRESSION: THERE IS NO MAMMOGRAPHIC EVIDENCE OF MALIGNANCY. A ROUTINE FOLLOW-UP MAMMOGRAM IN 1 YEAR IS RECOMMENDED. THE RESULTS OF THIS EXAM WERE SENT TO THE PATIENT. ACR BI-RADS Category 1 - Negative MAMMOGRAPHY NOTE: 1. A negative mammogram report should not delay a biopsy if a dominant of clinically suspicious mass is present. 2. Approximately 10% to 15% of breast cancers are not detected by mammography. 3. Adenosis and dense breasts may obscure an underlying neoplasm. Reported by: OLENA KIM MD Electonically Signed: [id number]
== END 2019-09-11 11:46 | disposition home or self-care (01) ==
LOC: BICMAMMO 11:45
PROVIDERS: ATTEND Internal Medicine
DX: Z12.31 Encounter for screening mammogram for malignant neoplasm of breast (principal); Z80.3 Family history of malignant neoplasm of breast
CPT/HCPCS: 77063; 77067

== ENCOUNTER 2019-09-17 13:24 | Emergency (ER) | payer MEDICARE, BC, OTHER ==
[2019-09-18 11:32] LABS: SARS-CoV-2 MS2 Positive; SARS-CoV-2 N Gene Negative; SARS-CoV-2 S Gene Negative; SARS-CoV-2 orf1ab Negative
== END 2019-09-17 14:45 | disposition home or self-care (01) ==
LOC: ERS 13:24
DX: R50.9 Fever, unspecified (principal); F32.9 Major depressive disorder, single episode, unspecified; M81.0 Age-related osteoporosis without current pathological fracture; Z20.828 Contact with and (suspected) exposure to other viral communicable diseases
CPT/HCPCS: 99284; U0003; 87635

== ENCOUNTER 2019-09-21 10:37 | Day surgery (SDC) | payer MEDICARE, BC ==
[2019-09-20 09:54] VITALS: BMI 24.6
[2019-09-21 12:21] LABS: #Eosinphils 0.1 thou/uL (0.0-0.7); #Lymphocytes 1.8 thou/uL (1.20-3.40); #Monocytes 0.5 thou/uL (0.11-0.59); #Neutrophils 4.7 thou/uL (1.40-6.50); %Basophils 0.6 % (0.0-1.0); %Eosinophils 1.6 % (0.0-10.0); %Lymphocytes 24.8 % (21.0-51.0); %Monocytes 7.3 % (0.0-10.0); %Neutrophils 65.6 % (42.0-75.0); Mean Corpuscular HGB CONC 33.6 g/dL (32.0-36.0); Mean Corpuscular Hemoglobin 34.4 pg (27.0-31.0); Mean Platelet Volume 8.4 fL (7.4-10.4); Platelet Count 233 thou/uL (130-400); RBC Distribution Width 14.9 % (11.5-14.5); Red Blood Cell (RBC) Count 3.77 mill/uL (4.20-5.40); White Blood Cell (WBC) Count 7.2 thou/uL (4.8-10.8)
[2019-09-21] MEDS ORDERED: Lidocaine 1% PF 5 ML VIAL ONE (12:35)
[2019-09-21] MEDS ORDERED: PROPOFOL 200 MG/20 ML VIAL ONE (12:35)
[2019-09-21] MEDS ORDERED: Ondansetron PF 4 MG/2 ML Vial ONE (12:35)
[2019-09-21 12:56] LABS: Anion Gap 15 mmol/L (10-20); BUN (Urea Nitrogen) 19 mg/dL (9.8-20.1); Calc. Creatinine Clearance 50 mL/min (70-130); Calcium 9.4 mg/dL (7.8-10.44); Carbon Dioxide 25 mmol/L (23-31); Chloride 104 mmol/L (98-107); Estimated GFR-MDRD 57; Glucose 98 mg/dL (83-110); Potassium 3.9 mmol/L (3.5-5.1); Sodium 140 mmol/L (136-145)
[2019-09-21] MEDS ORDERED: Betamet Acet/Betamet Na Ph 30 MG/5 ML VIAL ONE ×3 (14:07→15:23)
[2019-09-21] MEDS ORDERED: Bupivacaine PF 0.5% 30 ML VIAL ONE (14:07)
[2019-09-21] MEDS ORDERED: Bacitracin Zinc Ointment 30 gm TUBE ONE (14:07)
[2019-09-21] MEDS ORDERED: Fentanyl 100 MCG/2 ML VIAL ONE (14:16)
[2019-09-21] MEDS ORDERED: Phenylephrine 10 MG/ML VIAL ONE (14:17)
[2019-09-21] MEDS ORDERED: Ketorolac Tromethamine 30 MG/ML VIAL ONE (16:07)
--- NOTE | 2019-09-23 07:34 | OP ---
DATE OF PROCEDURE: 09/21/2019 PREOPERATIVE DIAGNOSES: 1. Right carpal tunnel syndrome. 2. Right thumb triggering. FINDINGS: 1. Right thumb A1 brit very tight with constriction. 2. Right transcarpal ligament very tight with early stippling of the median nerve. No hourglass formation. PROCEDURES PERFORMED: 1. Trigger thumb release/A1 brit release, right thumb. 2. Right median nerve neuroplasty at the wrist/carpal tunnel release. ESTIMATED TOURNIQUET TIME: Twenty-seven minutes. ESTIMATED BLOOD LOSS: Less than 10 mL. COMPLICATION: None. INJECTABLE: Yes, 5 mL Celestone into each incision via drip technique. INDICATION: Patient had failed conservative treatment to prevent catching and triggering of the thumb. The patient also had median nerve symptoms, which had failed conservative treatment, injection. Had positive EMG for moderate right carpal tunnel syndrome. DESCRIPTION OF PROCEDURE: After successful general endotracheal anesthesia, the limb was prepped and draped. The patient then had the time-out done appropriately and we outlined the zigzag incision over the A1 brit with the acute angle being away from the web space and we then outlined an incision from medial to lateral in line with the ring finger and distally as far as Keller's cardinal line, approximately 5 mm distal to the volar wrist flexion crease. We then exsanguinated the limb, inflated tourniquet to 250 mmHg pressure, gave 10 mL of 0.5% Marcaine at each incision. We began with the A1 brit by first entering the skin, subcutaneous tissue and dissected down before we could visualize digital nerves. They were protected away from the midline by the clinical medical assistant and we identified the A1 brit. The A1 brit was very tight with some obvious stenosis, but no thickening of the tenosynovium. We then visualized, protected the two digital nerve branches in the midline and opened it with a [place] blade gently. We spread the remaining portion of the fibers of the A1 brit until we could visualize the tendon. The tendon did not have thick tenosynovium and there were no masses around or underneath. We then dripped mL Celestone into the wound, closed the incision with interrupted 4-0 nylon in a mattress pattern. We then approached the carpal tunnel incision and carried the incision through the skin, dermis, epidermis until we reached the level of the palmaris longus. We went just ulnar to the palmaris longus and then entered the transcarpal ligament. Once we reached the midportion, from the midportion distally, we opened the transcarpal ligament with a combination of [place] blade and tenotomy scissors with no complications. The digital ulnar nerve branches including the motor branch were protected. We then opened the transcarpal ligament from the midportion proximally using a combination of again a [place] blade and tenotomy scissors until we could completely visualize the transcarpal ligament and fascia being open. We then placed a 4 mL Celestone in this wound, obtained hemostasis, tourniquet deflated, and closed the incision with interrupted 4-0 nylon mattress pattern. Bulky dressing was applied. The patient left the operating room without evidence of anesthetic or operative complication. Job ID: [id number]
--- NOTE | 2019-09-23 12:18 | EKG ---
Test Reason : PREOP Blood Pressure : / mmHG Vent. Rate : 061 BPM Atrial Rate : 061 BPM P-R Int : 158 ms QRS Dur : 082 ms QT Int : 430 ms P-R-T Axes : 038 019 050 degrees QTc Int : 432 ms Normal sinus rhythm Normal ECG When compared with ECG of 06-MAR-2018 14:47, No significant change was found Confirmed by RAMIRO PADILLA, SAnnabelle ([id number]) on 09/23/2019 12:17:43 PM Referred By: SUGAR Confirmed By:DR. Rommel RUBIO MD
== END 2019-09-21 17:50 | disposition home or self-care (01) ==
LOC: SDC 10:37
PROVIDERS: ATTEND Orthopaedic Surgery Hand Surgery
PROC: 01N50ZZ Release Median Nerve, Open Approach (ICD-10-PCS; principal; 2019-09-21)
PROC: 0LN70ZZ Release Right Hand Tendon, Open Approach (ICD-10-PCS; 2019-09-21)
DX: G56.01 Carpal tunnel syndrome, right upper limb (principal); M65.311 Trigger thumb, right thumb; G56.21 Lesion of ulnar nerve, right upper limb; M85.80 Other specified disorders of bone density and structure, unspecified site; N18.3 Chronic kidney disease, stage 3 (moderate); M19.90 Unspecified osteoarthritis, unspecified site; M35.00 Sjogren syndrome, unspecified; Z79.899 Other long term (current) drug therapy; Z88.1 Allergy status to other antibiotic agents; Z88.5 Allergy status to narcotic agent; Z88.8 Allergy status to other drugs, medicaments and biological substances
CPT/HCPCS: 36415; 80048; 85025; 93005; 93010; J0690; J0702; J1885; J2001; J2370; J2405; J2704; J3010; S0020

== ENCOUNTER 2020-02-19 07:45 | Outpatient (CLI) | payer MEDICARE, BC ==
--- NOTE | 2020-02-19 09:25 | MRI ---
MRI cervical spinewithout contrast: INDICATIONS: Cervical pain. Radiculopathy COMPARISON:None FINDINGS: Vertebral bodies maintain normal height and alignment and exhibit normal signal. Mild degenerative ch anges of the vertebral bodies with anterior osteophytes. Degenerative disc changes throughout. Loss of disc space most prominent at C4-5, C5-6, and C6-7. C2-3: No central canal or foraminal stenosis. C3-4:Posterior disc bulge and spondylosis mildly compress the anterior cord. Left foraminal stenosis due to facet and uncinate hypertrophy. C4-5:Disc bulge and spondylosis abut the anterior cord. Bilateral foraminal stenosis due to facet and nondistended hypertrophy. C5-6:Prominent disc osteophyte complex compresses the anterior cord. Bilateral foraminal stenosis. C6-7:Mild disc bulge and spondylosis abut the anterior cord. Mild right foraminal stenosis. C7-T1:No central canal or foraminal stenosis. Cervical cord:Cervical spinal cord exhibits normal signal. Soft tissues:No soft tissue abnormality identified. IMPRESSION: 1.Multilevel degenerative disc changes with posterior spondylosis. Cord compression C3-4, C4-5, and C 5-6 as described above. Large disc osteophyte complex at C5-6.
== END 2020-02-19 07:46 | disposition home or self-care (01) ==
LOC: SCSMRI 07:45
PROVIDERS: ATTEND Internal Medicine
DX: M43.12 Spondylolisthesis, cervical region (principal); M50.30 Other cervical disc degeneration, unspecified cervical region; M47.812 Spondylosis without myelopathy or radiculopathy, cervical region; M25.78 Osteophyte, vertebrae
CPT/HCPCS: 72141

== ENCOUNTER 2020-06-04 08:45 | Outpatient (CLI) | payer MEDICARE, BC ==
--- NOTE | 2020-06-04 09:32 | MMO ---
Left Breast MAMMO Unilat Diag [facility] LT+IRVIN. CLINICAL HISTORY: Patient is 75 years old and is seen for diagnostic exam and palpable abnormality in the left breast. The patient has the following family history of breast cancer: 3 paternal aunts. The patient has no personal history of cancer. VIEWS: The views performed were: left craniocaudal with tomosynthesis; left mediolateral oblique with tomosynthesis; and left mediolateral with tomosynthesis. FILMS COMPARED: The present examination has been compared to prior imaging studies performed at [facility] on 08/14/2018, 09/11/2019 and 06/04/2020. This study has been interpreted with the assistance of computer-aided detection. MAMMOGRAM FINDINGS: The breast is heterogeneously dense, which could obscure a lesion on mammography. There are benign appearing calcifications in the left breast. No mammographic or sonograhic abnormality is seen at the site of palpable concern in the left breast (7:00). There are no suspicious masses, suspicious calcifications, or new areas of architectural distortion. IMPRESSION: THERE IS NO MAMMOGRAPHIC EVIDENCE OF MALIGNANCY. A ROUTINE FOLLOW-UP MAMMOGRAM IN 1 YEAR IS RECOMMENDED. THE RESULTS OF THIS EXAM WERE SENT TO THE PATIENT. ACR BI-RADS Category 2 - Benign finding MAMMOGRAPHY NOTE: 1. A negative mammogram report should not delay a biopsy if a dominant of clinically suspicious mass is present. 2. Approximately 10% to 15% of breast cancers are not detected by mammography. 3. Adenosis and dense breasts may obscure an underlying neoplasm. Reported by: OLENA KIM MD Electonically Signed: [id number]
--- NOTE | 2020-06-04 10:53 | ULT ---
LEFT BREAST ULTRASOUND: Date: 06/04/2020 HISTORY: Palpable abnormality at the 7 o'clock position of the left breast and left breast pain. FINDINGS: Correlation is made with the mammogram from same date. Sonographic evaluation of the region of palpable concern at the 7 o'clock position of the left breast demonstrates no abnormality. IMPRESSION: BI-RADS Category 2 - Benign findings. Return to annual mammographic screening. POS: OFF
== END 2020-06-04 08:46 | disposition home or self-care (01) ==
LOC: BICMAMMO 08:45
PROVIDERS: ATTEND Internal Medicine
DX: N64.4 Mastodynia (principal)
CPT/HCPCS: 76642; 77065; G0279

== ENCOUNTER 2021-06-10 11:00 | Outpatient (CLI) | payer MEDICARE, BC | END 2021-06-10 11:01 | disposition home or self-care (01) | LOC: BICRAD 11:00 | PROVIDERS: ATTEND Internal Medicine | DX: M25.562 Pain in left knee (principal) ==

== ENCOUNTER 2022-05-13 12:16 | Outpatient (CLI) | payer MEDICARE, BC | END 2022-05-13 12:17 | disposition home or self-care (01) | LOC: BICRAD 12:16 | PROVIDERS: ATTEND Family Medicine | DX: M47.816 Spondylosis without myelopathy or radiculopathy, lumbar region (principal); M51.9 Unspecified thoracic, thoracolumbar and lumbosacral intervertebral disc disorder; M79.18 Myalgia, other site | CPT/HCPCS: 72100 ==

== ENCOUNTER 2023-02-15 08:35 | Inpatient (IN) | payer MEDICARE, BC ==
[2023-02-14 09:31] VITALS: BMI 23.0
[2023-02-15] MEDS ORDERED: EPINEPHrine 1 MG/ML AMP ONE (08:48)
[2023-02-15] MEDS ORDERED: Bupivacaine 0.25% HCL 30 ML VIAL ONE (08:48)
[2023-02-15] MEDS ORDERED: Sodium Chloride 0.9% 100 ML ONE (08:50)
[2023-02-15] MEDS ORDERED: Vancomycin 1 GM/200 ML (FROZEN) BAG ONE (08:50)
[2023-02-15] MEDS ORDERED: Tranexamic Acid 1,000 MG/10 ML VIAL ONE ×2 (08:50→11:18)
[2023-02-15] MEDS ORDERED: Nitroglycerin 2% Ointment 1 INCH/1 GM Packet ONE ×2 (09:19→09:20)
[2023-02-15] MEDS ORDERED: fentaNYL PF 100 MCG/2 ML SYRINGE ONE (09:19)
[2023-02-15] MEDS ORDERED: Midazolam HCl 2 mg/2 ml Vial ONE (09:22)
[2023-02-15] MEDS ORDERED: fentaNYL 50 mcg/mL 1 mL Vial ONE ×4 (09:22→11:59)
[2023-02-15] MEDS ORDERED: fentaNYL 50 mcg/mL 1 mL Vial SLOW IVP PRN (09:29)
[2023-02-15] MEDS ORDERED: Ondansetron PF 4 MG/2 ML Vial IVP PRN ×2 (09:30→11:02)
[2023-02-15] MEDS ORDERED: Ropivacaine 0.2% 550 ML 550 ML NERVE BLCK SCH (09:30)
[2023-02-15] MEDS ORDERED: Promethazine HCl 25 MG/ML VIAL IM PRN ×2 (09:30→11:02)
[2023-02-15] MEDS ORDERED: HYDROcodone/Acetaminophen 10/325 mg Tablet PO PRN ×2 (09:30)
[2023-02-15] MEDS ORDERED: Zolpidem Tartrate 5 MG TAB PO PRN ×2 (09:30→11:02)
[2023-02-15] MEDS ORDERED: Ondansetron PF 4 MG/2 ML Vial ONE (09:31)
[2023-02-15] MEDS ORDERED: PROPOFOL 200 MG/20 ML VIAL ONE (09:31)
[2023-02-15] MEDS ORDERED: Bupivacaine HCl 0.5%/Epinephrine 1:200,000/PF 30 ml Vial ONE (09:31)
[2023-02-15] MEDS ORDERED: Dexamethasone 20 MG/5 ML VIAL ONE (09:31)
[2023-02-15] MEDS ORDERED: ePHEDrine Sulfate 50 MG/10 ML VIAL ONE (09:31)
[2023-02-15] MEDS ORDERED: Lidocaine 1% PF 5 ML VIAL ONE (09:31)
[2023-02-15] MEDS ORDERED: diphenhydrAMINE 25 MG CAP PO PRN (11:02)
[2023-02-15] MEDS ORDERED: Acetaminophen 325 MG TAB PO PRN (11:02)
[2023-02-15] MEDS ORDERED: Ketorolac Tromethamine 30 MG/ML VIAL ONE (11:06)
[2023-02-15] MEDS: Ketorolac Tromethamine 30 MG/ML VIAL IVP SCH ×2 (11:46→17:15)
[2023-02-15] MEDS ORDERED: Aspirin 81 mg Enteric Coated Tablet PO SCH (12:00)
[2023-02-15] MEDS: Sodium Chloride 0.9% 1,000 ML IV SCH ×2 (13:42→21:18)
[2023-02-15] MEDS: CEFAZOLIN 2 GM in Sodium Chloride 0.9% 100 ML IVPB SCH (17:19)
[2023-02-15] MEDS: Aspirin 81 mg Enteric Coated Tablet PO SCH (21:17)
[2023-02-16] MEDS: Ketorolac Tromethamine 30 MG/ML VIAL IVP SCH ×3 (00:14→11:55)
[2023-02-16] MEDS: CEFAZOLIN 2 GM in Sodium Chloride 0.9% 100 ML IVPB SCH (00:15)
[2023-02-16 05:52] LABS: Hematocrit 28.1 % (36.0-47.0); Hemoglobin 9.3 g/dL (12.0-16.0); Mean Corpuscular HGB CONC 33.1 g/dL (32.0-36.0); Mean Corpuscular Hemoglobin 32.9 pg (27.0-31.0); Mean Corpuscular Volume 99.3 fl (78.0-98.0); Mean Platelet Volume 11.5 fL (7.4-10.4); Platelet Count 210 10x3/uL (130-400); RBC Distribution Width 17.3 % (11.5-14.5); Red Blood Cell (RBC) Count 2.83 mill/uL (4.20-5.40); White Blood Cell (WBC) Count 11.3 10x3/uL (4.8-10.8)
[2023-02-16] MEDS: Sodium Chloride 0.9% 1,000 ML IV SCH (06:44)
[2023-02-16] MEDS ORDERED: Ferrous Gluconate 324 MG TAB PO SCH (08:00)
[2023-02-16] MEDS: Aspirin 81 mg Enteric Coated Tablet PO SCH (08:38)
[2023-02-16 08:53] VITALS: BP 125/50; TEMP 97.8
[2023-02-16] MEDS ORDERED: Senokot S 8.6-50 MG TAB PO SCH (09:00)
[2023-02-16] MEDS ORDERED: Multivitamin W/ Minerals 1 TAB PO SCH (09:00)
[2023-02-16] MEDS ORDERED: Loratadine 10 MG TAB PO PRN (09:19)
[2023-02-16] MEDS ORDERED: Donepezil HCl 10 MG TAB PO SCH (21:00)
[2023-02-17] MEDS ORDERED: Cholecalciferol 1,000 UNITS (25 MCG) TAB PO SCH (09:00)
[2023-02-17] MEDS ORDERED: Non-Formulary Item 1 EACH (Vitamin B Complex [Vitamin B Complex] 1 CAP Capsule) PO SCH (09:00)
[2023-02-17] MEDS ORDERED: Multivit, Therapeutic 1 TAB PO SCH (09:00)
[2023-02-17] MEDS ORDERED: [UNRECOGNIZED DRUG - OTHER] PO SCH (09:00)
[2023-02-17] MEDS ORDERED: Non-Formulary Item 1 EACH (Multivitamin/Iron/Folic Acid [Centrum Adults Tablet] 1 EACH Ta PO SCH (09:00)
[2023-02-17] MEDS ORDERED: Non-Formulary Item 1 EACH (Cholecalciferol (Vitamin D3) [Vitamin D3] 50 MCG Capsule) PO SCH (09:00)
[2023-02-17] MEDS ORDERED: Amlodipine 5 MG TAB PO SCH (09:00)
[2023-02-17] MEDS ORDERED: Multivitamin w/Zinc Stress 1 TAB PO SCH (09:00)
[2023-02-17] MEDS ORDERED: [UNRECOGNIZED DRUG - OTHER] PO SCH (09:00)
[2023-02-17] MEDS ORDERED: CALTRATE PO SCH (09:00)
[2023-02-17] MEDS ORDERED: BIOTIN 2500 MCG PO SCH (09:00)
== END 2023-02-16 14:40 | disposition home or self-care (01) | DRG 470 ==
LOC: SDC 08:35 → SJJU 11:02 → OBSVTOIN 02-16 07:24
PROVIDERS: ADMIT Orthopaedic Surgery; ATTEND Orthopaedic Surgery
PROC: 0SRD0J9 Replacement of Left Knee Joint with Synthetic Substitute, Cemented, Open Approach (ICD-10-PCS; principal; 2023-02-15)
DX: M17.12 Unilateral primary osteoarthritis, left knee (principal); F03.90 Unspecified dementia, unspecified severity, without behavioral disturbance, psychotic disturbance, mood disturbance, and anxiety; I12.9 Hypertensive chronic kidney disease with stage 1 through stage 4 chronic kidney disease, or unspecified chronic kidney disease; N18.30 Chronic kidney disease, stage 3 unspecified; Z88.8 Allergy status to other drugs, medicaments and biological substances; Z88.1 Allergy status to other antibiotic agents; Z79.899 Other long term (current) drug therapy; Z98.890 Other specified postprocedural states; Z79.82 Long term (current) use of aspirin; F41.9 Anxiety disorder, unspecified; F32.A Depression, unspecified; Z98.51 Tubal ligation status
CPT/HCPCS: 36415; 80048; 85025; 85027; 85610; 87081; 93005; A4306; C1776; J0171; J1100; J1885; J2250; J2405; J2704; J2795; J3010; J3370-JW; J3490; S0020

== ENCOUNTER 2024-02-29 10:38 | Outpatient (CLI) | payer MEDICARE | END 2024-02-29 10:39 | disposition home or self-care (01) | LOC: SCSRAD 10:38 | PROVIDERS: ATTEND Nurse Practitioner Family | DX: M25.561 Pain in right knee (principal); R07.9 Chest pain, unspecified; J98.11 Atelectasis | CPT/HCPCS: 71046 ==

== ENCOUNTER 2024-03-06 09:51 | Outpatient (CLI) | payer MEDICARE | END 2024-03-06 09:52 | disposition home or self-care (01) | LOC: SCSRAD 09:51 | PROVIDERS: ATTEND Nurse Practitioner Family | DX: R07.89 Other chest pain (principal); R91.8 Other nonspecific abnormal finding of lung field | CPT/HCPCS: 71046; 71120 ==

== ENCOUNTER 2024-03-16 10:46 | Outpatient (CLI) | payer MEDICARE | END 2024-03-16 10:47 | disposition home or self-care (01) | LOC: BICRAD 10:46 | PROVIDERS: ATTEND Internal Medicine | DX: M79.641 Pain in right hand (principal); M25.512 Pain in left shoulder; M18.11 Unilateral primary osteoarthritis of first carpometacarpal joint, right hand; M19.041 Primary osteoarthritis, right hand; M19.012 Primary osteoarthritis, left shoulder; M25.712 Osteophyte, left shoulder; M25.812 Other specified joint disorders, left shoulder ==

== ENCOUNTER 2025-01-22 09:02 | Outpatient (CLI) | payer MEDICARE | END 2025-01-22 09:03 | disposition home or self-care (01) | LOC: SCSRAD 09:02 | PROVIDERS: ATTEND Internal Medicine | DX: R07.81 Pleurodynia (principal); R07.2 Precordial pain; S22.20XD Unspecified fracture of sternum, subsequent encounter for fracture with routine healing; Z11.1 Encounter for screening for respiratory tuberculosis | CPT/HCPCS: 36415; 71120; 86480 ==

== ENCOUNTER 2025-02-13 17:36 | Emergency (ER) | payer MEDICARE ==
[2025-02-13 18:44] LABS: #Basophils 0.05 10x3/uL (0.0-0.2); #Eosinophils 0.30 10x3/uL (0.0-0.7); #Monocytes 0.51 10x3/uL (0.11-0.59); #Neutrophils 3.21 10x3/uL (1.40-6.50); %Basophils 1.0 % (0.0-1.0); %Eosinophils 5.9 % (0.0-10.0); %Lymphocytes 19.6 % (21.0-51.0); %Monocytes 10.0 % (0.0-10.0); %Neutrophils 63.1 % (42.0-75.0); Hematocrit 28.2 % (36.0-47.0); Hemoglobin 9.1 g/dL (12.0-16.0); Mean Corpuscular Hemoglobin 32.2 pg (27.0-31.0); Mean Corpuscular Volume 99.6 fL (78.0-98.0); Platelet Count 251 10x3/uL (130-400); Red Blood Cell (RBC) Count 2.83 mill/uL (4.20-5.40); White Blood Cell (WBC) Count 5.09 10x3/uL (4.8-10.8)
[2025-02-13 19:31] LABS: ALT (SGPT) 25 U/L (Less than 34); AST (SGOT) 40 U/L (11-34); Albumin 4.0 g/dL (3.1-4.5); Alkaline Phosphatase 67 U/L (40-110); Anion Gap 12 mmol/L (10-20); BUN (Urea Nitrogen) 13 mg/dL (9.8-20.1); Bilirubin, Total 1.0 mg/dL (0.3-1.2); Calc. Creatinine Clearance 0 mL/min (70-130); Calcium 8.9 mg/dL (7.8-10.44); Carbon Dioxide 25 mmol/L (23-31); Chloride 109 mmol/L (98-107); Globulin 2.3 g/dL (2.4-3.5); Glucose 84 mg/dL (83-110); Potassium 4.1 mmol/L (3.5-5.1); Sodium 142 mmol/L (136-145)
[2025-02-13] MEDS ORDERED: diphenhydrAMINE 50 MG/ML VIAL ONE (20:02)
[2025-02-13 20:47] LABS: Bacteria/HPF 3+ HPF (None Seen); CAUTI Indications for Culture Dysuria,urgency,freq; Glucose, Urine (Dipstick) Normal (Negative); Leukocyte 500 Leu/uL (Negative); Protein, Urine (Dipstick) Negative (Neg-Trace); RBC/HPF 0-3 HPF (0-3); Specific Gravity, Urine 1.005 (1.002-1.036); WBC/HPF 21-50 HPF (0-3)
[2025-02-13 20:49] LABS: Urine Culture Reflex Yes Yes
[2025-02-13] MEDS ORDERED: cefTRIAXone (ROCEPHIN) 1 GM VIAL ONE (21:22)
== END 2025-02-13 22:41 | disposition home or self-care (01) ==
LOC: ERS 17:36
DX: N30.00 Acute cystitis without hematuria (principal); F03.90 Unspecified dementia, unspecified severity, without behavioral disturbance, psychotic disturbance, mood disturbance, and anxiety; Z79.899 Other long term (current) drug therapy; Z79.82 Long term (current) use of aspirin
CPT/HCPCS: 80053; 81001; 85025; 87077; 87086; 87186; J0696; J1200; J1630; 51701; 96365; 96375

== ENCOUNTER 2025-03-06 12:07 | Outpatient (CLI) | payer MEDICARE | END 2025-03-06 12:08 | disposition home or self-care (01) | LOC: ULT 12:07 | PROVIDERS: ATTEND Internal Medicine | DX: M79.604 Pain in right leg (principal); M79.89 Other specified soft tissue disorders ==